=== PATIENT | female | born 1945 | race Hispanic/Latino ===

== ENCOUNTER 2017-06-08 16:45 | Inpatient (IN) | payer MEDICARE ==
[~2017-06-08] VITALS: Ht 152.4 cm; Wt 75.8 kg
[2017-06-08] MEDS ORDERED: ACETAMINOPHEN 325 MG TAB PO ONE (18:00)
--- NOTE | 2017-06-08 18:00 | Diagnostic Imaging Report ---
PROCEDURE: Frontal and lateral views of the chest. COMPARISON: None. INDICATIONS: FLU LIKE SYMPTOMS FINDINGS: Lines/tubes: None. Lungs: The lungs are well inflated. Mild bilateral pleural effusions these opacities. Pleura: There is no pleural effusion or pneumothorax. Heart and mediastinum: The heart and the mediastinum are normal. Bones: No acute bony abnormality. Degenerative changes of the spine. IMPRESSION: Mild bilateral lower lung field hazy opacities representing atelectasis and/or developing pneumonia. Dictated by: Ryan Doyle M.D. on 06/08/2017 at 18:09 Electronically approved by: Ryan Doyle M.D. on 06/08/2017 at 18:09
[2017-06-08 18:36] LABS: BASOPHILS # (AUTO) 0.1 (0.0-0.1); BASOPHILS % 0.4 % (0.0-1.0); HEMATOCRIT 37.9 % (34.2-44.1); HEMOGLOBIN 12.6 g/dL (12.0-16.0); LYMPHOCYTES % 13.1 % (18.0-39.1); MEAN CORPUSCULAR HEMOGLOBIN 28.8 pg (28-32); MEAN CORPUSCULAR HGB CONC 33.2 g/dL (31-35); MEAN CORPUSCULAR VOLUME 86.5 fL (81-99); MONOCYTES # (AUTO) 0.6 (0.2-0.8); MONOCYTES % 3.9 % (4.4-11.3); NEUTROPHILS # (AUTO) 12.7 (2.1-6.9); PLATELET COUNT 268 x10e3/uL (140-360); RED BLOOD COUNT 4.38 x10e6/uL (3.6-5.1); RED CELL DISTRIBUTION WIDTH 13.6 % (11.7-14.4)
[2017-06-08 18:50] LABS: ALANINE AMINOTRANSFERASE 23 IU/L (0-55); ALBUMIN 2.8 g/dL (3.5-5.0); ALBUMIN/GLOBULIN RATIO 0.5 (0.8-2.0); ALKALINE PHOSPHATASE 56 IU/L (40-150); BLOOD UREA NITROGEN 19 mg/dL (7-26); BUN/CREATININE RATIO 22 (6-25); CALCIUM 8.9 mg/dL (8.4-10.2); CARBON DIOXIDE 22 mmol/L (22-29); CHLORIDE 99 mmol/L (98-107); CREATINE KINASE 50 IU/L (29-168); CREATININE, SERUM 0.85 mg/dL (0.57-1.11); EST GLOMERULAR FILTRATION RATE > 60 ML/MIN (60-); GLUCOSE 115 mg/dL (74-118); SODIUM 134 mmol/L (136-145)
[2017-06-08] MEDS ORDERED: CEFTRIAXONE SOD 1 GM VIAL IV STA (20:28)
[2017-06-08] MEDS ORDERED: AZITHROMYCIN 500MG/NS 250 ML 250 ML IV STA (20:28)
[2017-06-08] MEDS ORDERED: SODIUM CHLORIDE 0.9% 1000ML 1,000 ML IV SCH (20:30)
[2017-06-08] MEDS: CEFTRIAXONE SOD 1 GM VIAL IV SCH (20:45)
[2017-06-08] MEDS ORDERED: DEXTROSE 50% SYRINGE 50 ML IV PRN (20:45)
[2017-06-08] MEDS ORDERED: AZITHROMYCIN 500MG/SOD CHL 0.9% 250ML BAG IV SCH (20:45)
[2017-06-08] MEDS ORDERED: ALBUTEROL SULF 0.083% NEB SOLN 3 ML NEB NEB SCH (20:45)
[2017-06-08] MEDS: INSULIN REGULAR, HUMAN 100 UNIT/1 ML 3ML VIAL SQ SCH (21:00)
[2017-06-08] MEDS: ALBUTEROL SULF 0.083% NEB SOLN 3 ML NEB NEB SCH (23:00)
[2017-06-08] MEDS: SODIUM CHLORIDE 0.9% 1000ML 1,000 ML IV SCH (23:34)
[2017-06-09] MEDS ORDERED: IPRATROPIUM BROMIDE 0.02% 2.5 ML NEB NEB SCH
[2017-06-09] MEDS: IPRATROPIUM BROMIDE 0.02% 2.5 ML NEB NEB SCH ×4 (01:00→19:45)
[2017-06-09 03:13] LABS: BASOPHILS % 0.3 % (0.0-1.0); EOSINOPHILS % 0.1 % (0.0-6.0); HEMATOCRIT 31.8 % (34.2-44.1); HEMOGLOBIN 10.5 g/dL (12.0-16.0); LYMPHOCYTES # (AUTO) 1.6 (1.0-3.2); LYMPHOCYTES % 11.3 % (18.0-39.1); MEAN CORPUSCULAR HEMOGLOBIN 28.8 pg (28-32); MEAN CORPUSCULAR VOLUME 87.1 fL (81-99); MONOCYTES # (AUTO) 0.5 (0.2-0.8); MONOCYTES % 3.5 % (4.4-11.3); NEUTROPHILS # (AUTO) 11.7 (2.1-6.9); NEUTROPHILS % 84.3 % (38.7-80.0); PLATELET COUNT 278 x10e3/uL (140-360); RED BLOOD COUNT 3.65 x10e6/uL (3.6-5.1); RED CELL DISTRIBUTION WIDTH 13.7 % (11.7-14.4)
[2017-06-09] MEDS: ALBUTEROL SULF 0.083% NEB SOLN 3 ML NEB NEB SCH ×5 (03:30→19:45)
[2017-06-09 03:51] LABS: CREATINE KINASE MB 0.5 ng/mL (0.00-5.00)
[2017-06-09 04:08] LABS: ALANINE AMINOTRANSFERASE 18 IU/L (0-55); ALBUMIN 2.3 g/dL (3.5-5.0); ALBUMIN/GLOBULIN RATIO 0.5 (0.8-2.0); ALKALINE PHOSPHATASE 48 IU/L (40-150); ANION GAP 12.7 mmol/L (8-16); BLOOD UREA NITROGEN 25 mg/dL (7-26); BUN/CREATININE RATIO 32 (6-25); CALCIUM 8.3 mg/dL (8.4-10.2); CARBON DIOXIDE 25 mmol/L (22-29); CHLORIDE 104 mmol/L (98-107); CREATININE, SERUM 0.79 mg/dL (0.57-1.11); EST GLOMERULAR FILTRATION RATE > 60 ML/MIN (60-); GLUCOSE 87 mg/dL (74-118); POTASSIUM 3.7 mmol/L (3.5-5.1); SODIUM 138 mmol/L (136-145)
[2017-06-09] MEDS: SODIUM CHLORIDE 0.9% 1000ML 1,000 ML IV SCH ×3 (05:42→21:10)
[2017-06-09] MEDS: INSULIN REGULAR, HUMAN 100 UNIT/1 ML 3ML VIAL SQ SCH ×4 (08:08→21:00)
[2017-06-09 12:14] LABS: CREATINE KINASE MB 0.4 ng/mL (0.00-5.00)
[2017-06-09 16:00] VITALS: BP 130/70
[2017-06-09 17:54] VITALS: BP 130/70
[2017-06-09 20:00] VITALS: BP 118/58
[2017-06-09] MEDS: AZITHROMYCIN 500MG/NS 250 ML 250 ML IV SCH (21:10)
[2017-06-09] MEDS: CEFTRIAXONE SOD 1 GM VIAL IV SCH (21:10)
[2017-06-10] VITALS (8 sets, daily range): BP systolic 119–160; BP diastolic 70–82
[2017-06-10] MEDS: ALBUTEROL SULF 0.083% NEB SOLN 3 ML NEB NEB SCH ×7 (00:30→23:55)
[2017-06-10] MEDS: IPRATROPIUM BROMIDE 0.02% 2.5 ML NEB NEB SCH ×4 (00:30→19:09)
[2017-06-10] MEDS: SODIUM CHLORIDE 0.9% 1000ML 1,000 ML IV SCH ×3 (04:16→19:33)
[2017-06-10] MEDS: INSULIN REGULAR, HUMAN 100 UNIT/1 ML 3ML VIAL SQ SCH ×4 (07:30→20:54)
[2017-06-10] MEDS: GUAIFENESIN/CODEINE 10 ML CUP PO PRN ×3 (10:13→21:00)
[2017-06-10] MEDS: AZITHROMYCIN 500MG/NS 250 ML 250 ML IV SCH (19:32)
[2017-06-10] MEDS: CEFTRIAXONE SOD 1 GM VIAL IV SCH (21:05)
[2017-06-11] VITALS (8 sets, daily range): BP systolic 134–168; BP diastolic 74–85
[2017-06-11] MEDS ORDERED: CLONIDINE HCL 0.1 MG TAB PO PRN (01:00)
[2017-06-11] MEDS: ALBUTEROL SULF 0.083% NEB SOLN 3 ML NEB NEB SCH ×5 (03:10→19:40)
[2017-06-11] MEDS: IPRATROPIUM BROMIDE 0.02% 2.5 ML NEB NEB SCH ×4 (03:10→19:40)
[2017-06-11 06:08] LABS: BASOPHILS % 0.4 % (0.0-1.0); EOSINOPHILS % 0.7 % (0.0-6.0); HEMATOCRIT 27.2 % (34.2-44.1); LYMPHOCYTES # (AUTO) 0.8 (1.0-3.2); LYMPHOCYTES % 15.5 % (18.0-39.1); MEAN CORPUSCULAR HEMOGLOBIN 28.8 pg (28-32); MEAN CORPUSCULAR HGB CONC 33.1 g/dL (31-35); MEAN CORPUSCULAR VOLUME 87.2 fL (81-99); MONOCYTES # (AUTO) 0.2 (0.2-0.8); MONOCYTES % 3.9 % (4.4-11.3); NEUTROPHILS # (AUTO) 4.3 (2.1-6.9); NEUTROPHILS % 78.9 % (38.7-80.0); PLATELET COUNT 309 x10e3/uL (140-360); RED BLOOD COUNT 3.12 x10e6/uL (3.6-5.1); RED CELL DISTRIBUTION WIDTH 13.5 % (11.7-14.4)
[2017-06-11 06:28] LABS: ANION GAP 10.4 mmol/L (8-16); BLOOD UREA NITROGEN 6 mg/dL (7-26); BUN/CREATININE RATIO 11 (6-25); CALCIUM 7.8 mg/dL (8.4-10.2); CARBON DIOXIDE 25 mmol/L (22-29); CHLORIDE 106 mmol/L (98-107); CREATININE, SERUM 0.54 mg/dL (0.57-1.11); EST GLOMERULAR FILTRATION RATE > 60 ML/MIN (60-); GLUCOSE 89 mg/dL (74-118); POTASSIUM 3.4 mmol/L (3.5-5.1); SODIUM 138 mmol/L (136-145)
--- NOTE | 2017-06-11 07:04 | Diagnostic Imaging Report ---
EXAMINATION: CHEST 2 VIEWS INDICATION: Pneumonia. COMPARISON: None FINDINGS: TUBES and LINES: None. LUNGS: Lungs are not well inflated. There are bibasilar atelectasis. There is perihilar interstitial opacities, consistent with interstitial edema. PLEURA: Small bilateral pleural effusions. HEART AND MEDIASTINUM: Cardiac size is mildly enlarged. There are atherosclerotic calcifications within the aorta. BONES AND SOFT TISSUES: No acute osseous lesion. Soft tissues are unremarkable. UPPER ABDOMEN: No free air under the diaphragm. IMPRESSION: Findings are compatible with fluid overload/pulmonary edema with small bilateral pleural effusions Signed by: Dr. Sedrick Garcia M.D. on 06/11/2017 7:01 AM
[2017-06-11] MEDS: INSULIN REGULAR, HUMAN 100 UNIT/1 ML 3ML VIAL SQ SCH ×4 (07:30→20:34)
[2017-06-11] MEDS ORDERED: FUROSEMIDE INJ 10 MG/ML 4 ML VIAL IV ONE (08:15)
[2017-06-11] MEDS ORDERED: LACTULOSE SYRUP 20 GM/30 ML UDC PO PRN (09:00)
[2017-06-11] MEDS: GUAIFENESIN/CODEINE 10 ML CUP PO PRN (17:54)
[2017-06-11] MEDS: AZITHROMYCIN 500MG/NS 250 ML 250 ML IV SCH ×2 (19:25→20:34)
[2017-06-11] MEDS: CEFTRIAXONE SOD 1 GM VIAL IV SCH (20:34)
[2017-06-12] MEDS: ALBUTEROL SULF 0.083% NEB SOLN 3 ML NEB NEB SCH ×6 (00:05→19:52)
[2017-06-12] MEDS: IPRATROPIUM BROMIDE 0.02% 2.5 ML NEB NEB SCH ×4 (00:05→19:52)
[2017-06-12 04:50] VITALS: BP 155/84
[2017-06-12] MEDS: INSULIN REGULAR, HUMAN 100 UNIT/1 ML 3ML VIAL SQ SCH ×4 (07:30→20:34)
[2017-06-12 08:00] VITALS: BP 154/72
--- NOTE | 2017-06-12 09:49 | Diagnostic Imaging Report ---
PROCEDURE: CT ABDOMEN AND PELVIS WITH CONTRAST TECHNIQUE: The abdomen and pelvis were scanned utilizing a multidetector helical scanner from the diaphragm to the lesser trochanter after the IV administration of 100 cc of Isovue 370 and the oral administration of water. Coronal and sagittal multiplanar reformations were obtained. COMPARISON: None. INDICATIONS: ABDOMEN PAIN FINDINGS: LOWER THORAX: The bibasilar subsegmental atelectasis, left greater than right. No pleural or pericardial effusion.. HEPATOBILIARY: No focal hepatic lesions. No biliary ductal dilatation. The gallbladder is unremarkable. SPLEEN: No splenomegaly. PANCREAS: No focal masses or ductal dilatation. ADRENALS: No adrenal nodules. KIDNEYS/URETERS: Subcentimeter hypoattenuating lesion in the lower pole of the left kidney, too small to further characterize though likely to represent a small cyst. No hydronephrosis, calculi, or additional renal lesions. Duplicated left renal collecting system with separate upper and lower pole moiety ureters to the level of the pelvis. PELVIC ORGANS/BLADDER: The urinary bladder is collapsed and poorly evaluated. The uterus is anteflexed and appears normal. No adnexal mass. PERITONEUM / RETROPERITONEUM: No ascites. No pneumoperitoneum. LYMPH NODES: No pelvic sidewall, retroperitoneal, or mesenteric lymphadenopathy. VESSELS: The abdominal aorta, major branch vessels, and iliac arterial systems are patent with mild calcified atherosclerotic plaque. No aneurysmal dilatation. Accessory left lower pole renal artery. hepatic arterial anatomy appears conventional. Portal vein, splenic vein, and central superior mesenteric vein are patent. Incidental note of a circumaortic left renal vein. GI TRACT: The large bowel is notable for multiple diverticula along the descending and sigmoid colon, without wall thickening or adjacent inflammation. The appendix is normal. No small bowel dilatation to suggest obstruction. BONES AND SOFT TISSUES: No focal soft tissue abnormalities. No osseous destructive lesions. Multilevel degenerative disc changes and degenerative facet arthropathy of the lumbar spine. IMPRESSION: No acute intra-abdominal or pelvic CT abnormalities. Bibasilar subsegmental atelectasis. Large bowel diverticulosis without CT evidence of diverticulitis. Atherosclerotic vascular disease. Dictated by: Yash Roberto M.D. on 06/12/2017 at 9:57 Electronically approved by: Yash Roberto M.D. on 06/12/2017 at 9:57
[2017-06-12 12:00] VITALS: BP 141/83
[2017-06-12 16:00] VITALS: BP 131/72
[2017-06-12] MEDS ORDERED: DICYCLOMINE HCL 20 MG TAB PO PRN (18:30)
[2017-06-12 20:29] VITALS: BP 161/76
[2017-06-12] MEDS: AZITHROMYCIN 500MG/NS 250 ML 250 ML IV SCH (20:38)
[2017-06-12] MEDS: CEFTRIAXONE SOD 1 GM VIAL IV SCH (20:38)
[2017-06-12] MEDS ORDERED: IOPAMIDOL 370 MG/ML 200 ML INFUS..BTL INJ ONE (22:12)
[2017-06-12] MEDS ORDERED: SODIUM CHLORIDE 0.9% 50ML 50 ML ONE (22:12)
[2017-06-12 23:40] VITALS: BP 142/66
[2017-06-13] MEDS: ALBUTEROL SULF 0.083% NEB SOLN 3 ML NEB NEB SCH ×3 (00:10→07:00)
[2017-06-13] MEDS: IPRATROPIUM BROMIDE 0.02% 2.5 ML NEB NEB SCH ×2 (00:10→07:00)
[2017-06-13 04:00] VITALS: BP 109/52
[2017-06-13] MEDS ORDERED: LEVAQUIN500 MG PO (07:35)
[2017-06-13] MEDS ORDERED: BENTYL10 MG PO (07:37)
[2017-06-13] MEDS ORDERED: PROAIR HFA INH8.5 GM INH (07:37)
[2017-06-13 08:00] VITALS: BP 126/75
--- NOTE | 2017-08-06 16:24 | Discharge Summary ---
HOSPITAL COURSE: The patient came into the hospital for pneumonia. Patient was started on albuterol and Atrovent treatment, ipratropium, azotomycin, and ceftriaxone. Patient was also started on insulin sliding scale for her diabetes. Patient did better. Fluids were started. Patient had complained of some constipation and lactulose was started. Patient's abdominal pain was out of proportion. We did a CT scan, which did not show any diverticulosis and any abscesses or acute pathology. The patient continued to look better . Continued insulin given. The patient was feeling better and the patient was discharged home. FINAL DIAGNOSES 1. Pneumonia. 2. Constipation. 3. History of osteoarthritis. DISCHARGE CONDITION: The patient was discharged to home in a stable condition. MEDICATIONS ON DISCHARGE: As per medical reconciliation sheet. Continue to monitor the patient as an outpatient. DEE YEBOAH MD Job#: [id number] VAS
== END 2017-06-13 09:15 | disposition home or self-care (01) | DRG 195 ==
LOC: ER 16:45 → ERHOLD 20:50 → EDBEDREQTM 06-09 04:52 → ERHOLD 06-09 07:34 → MED/SURG2 06-09 15:25
PROVIDERS: ADMIT Family Medicine; ATTEND Family Medicine
DX: J18.9 Pneumonia, unspecified organism (principal); I10 Essential (primary) hypertension; D64.9 Anemia, unspecified; E11.9 Type 2 diabetes mellitus without complications; R09.02 Hypoxemia; Z79.4 Long term (current) use of insulin
CPT/HCPCS: 36415; 71046; 74177; 80048; 80053; 82550; 82553; 82948; 83605; 84484; 85025; 87040; 87400; 94640; 99284; J0456; J0696; J1940; J7030; Q9967

== ENCOUNTER 2017-12-01 17:53 | Emergency (ER) | payer MEDICARE ==
[~2017-12-01] VITALS: Ht 157.5 cm; Wt 75.7 kg
[~2017-12-01 17:53] MED LIST: BENTYL10 MG PO; LEVAQUIN500 MG PO; PROAIR HFA INH8.5 GM INH
[2017-12-01] MEDS ORDERED: NIFEDIPINE 10 MG CAP PO ONE (18:49)
[2017-12-01] MEDS ORDERED: NIFEDIPINE 10 MG CAP PO STA (18:49)
[2017-12-01 21:12] LABS: BASOPHILS % 0.2 % (0.0-1.0); HEMATOCRIT 34.4 % (34.2-44.1); HEMOGLOBIN 11.5 g/dL (12.0-16.0); LYMPHOCYTES # (AUTO) 0.8 (1.0-3.2); MEAN CORPUSCULAR HEMOGLOBIN 28.6 pg (28-32); MEAN CORPUSCULAR HGB CONC 33.4 g/dL (31-35); MEAN CORPUSCULAR VOLUME 85.6 fL (81-99); MONOCYTES # (AUTO) 0.3 (0.2-0.8); MONOCYTES % 3.1 % (4.4-11.3); NEUTROPHILS # (AUTO) 7.8 (2.1-6.9); NEUTROPHILS % 85.5 % (38.7-80.0); PLATELET COUNT 320 x10e3/uL (140-360); RED BLOOD COUNT 4.02 x10e6/uL (3.6-5.1); RED CELL DISTRIBUTION WIDTH 14.7 % (11.7-14.4)
[2017-12-01 21:25] LABS: ALANINE AMINOTRANSFERASE 23 IU/L (0-55); ALBUMIN 3.2 g/dL (3.5-5.0); ALKALINE PHOSPHATASE 76 IU/L (40-150); ANION GAP 10.1 mmol/L (8-16); BLOOD UREA NITROGEN 18 mg/dL (7-26); BUN/CREATININE RATIO 27 (6-25); CALCIUM 8.6 mg/dL (8.4-10.2); CARBON DIOXIDE 29 mmol/L (22-29); CHLORIDE 102 mmol/L (98-107); CREATININE, SERUM 0.66 mg/dL (0.57-1.11); EST GLOMERULAR FILTRATION RATE > 60 ML/MIN (60-); GLUCOSE 294 mg/dL (74-118); POTASSIUM 4.1 mmol/L (3.5-5.1); SODIUM 137 mmol/L (136-145)
[2017-12-01 22:03] LABS: LYMPHOCYTES % (MANUAL) 5 % (19-48); NEUTROPHILS % (MANUAL) 95 % (40-74); PLATELET ESTIMATE ADEQUATE; PLATELET MORPHOLOGY COMMENT NORMAL; RBC MORPHOLOGY COMMENT NORMAL
[2017-12-01] MEDS ORDERED: AUGMENTIN 875-1 EACH PO (22:50)
[2017-12-01] MEDS ORDERED: CLEOCIN HCL150 MG PO (22:50)
[2017-12-01] MEDS ORDERED: TYLENOL WITH C1 EACH PO (22:50)
[2017-12-01 23:00] VITALS: BP 127/77
== END 2017-12-01 23:05 | disposition home or self-care (01) ==
LOC: ER 17:53
DX: L03.317 Cellulitis of buttock (principal); I10 Essential (primary) hypertension; E11.9 Type 2 diabetes mellitus without complications
CPT/HCPCS: 36415; 80053; 85025; 99283

== ENCOUNTER 2018-11-16 20:57 | Emergency (ER) | payer MEDICARE ==
[~2018-11-16] VITALS: Ht 157.5 cm; Wt 75.7 kg
[~2018-11-16 20:57] MED LIST changes: +AUGMENTIN 875-1 EACH PO; +CLEOCIN HCL150 MG PO; +TYLENOL WITH C1 EACH PO
[2018-11-16] MEDS ORDERED: SODIUM CHLORIDE 0.9% 1000ML 1,000 ML IV ONE (21:45)
[2018-11-16] MEDS ORDERED: ONDANSETRON HCL INJ 2MG/ML 2ML 2 MG/ML VIAL IV STA ×2 (21:53→21:54)
[2018-11-16] MEDS ORDERED: ACETAMINOPHEN 1000 MG/100 ML IV STA ×2 (21:53→21:54)
[2018-11-16 22:16] LABS: BASOPHILS % 0.6 % (0.0-1.0); EOSINOPHILS % 1.1 % (0.0-6.0); HEMOGLOBIN 12.9 g/dL (12.0-16.0); LYMPHOCYTES # (AUTO) 0.7 (1.0-3.2); LYMPHOCYTES % 18.4 % (18.0-39.1); MEAN CORPUSCULAR HEMOGLOBIN 29.2 pg (28-32); MEAN CORPUSCULAR HGB CONC 33.1 g/dL (31-35); MEAN CORPUSCULAR VOLUME 88.2 fL (81-99); MONOCYTES # (AUTO) 0.2 (0.2-0.8); MONOCYTES % 4.2 % (4.4-11.3); NEUTROPHILS # (AUTO) 2.7 (2.1-6.9); NEUTROPHILS % 74.6 % (38.7-80.0); PLATELET COUNT 243 x10e3/uL (140-360); RED BLOOD COUNT 4.42 x10e6/uL (3.6-5.1); RED CELL DISTRIBUTION WIDTH 13.7 % (11.7-14.4)
[2018-11-16 22:18] LABS: BILIRUBIN,URINE SMALL (NEGATIVE); COLOR,URINE YELLOW (YELLOW); KETONES,URINE NEGATIVE (NEGATIVE); LEUKOCYTE ESTERASE ,URINE TRACE (NEGATIVE); NITRITE,URINE POSITIVE (NEGATIVE); PROTEIN,URINE DIPSTICK TRACE (NEGATIVE); URINE UROBILINOGEN 0.2 mg/dL (0.2 - 1)
[2018-11-16 22:33] LABS: ALANINE AMINOTRANSFERASE 16 IU/L (0-55); ALBUMIN 3.1 g/dL (3.5-5.0); ALBUMIN/GLOBULIN RATIO 0.8 (0.8-2.0); ALKALINE PHOSPHATASE 42 IU/L (40-150); AMYLASE 24 U/L (25-125); ANION GAP 16.7 mmol/L (8-16); BLOOD UREA NITROGEN 13 mg/dL (7-26); BUN/CREATININE RATIO 16 (6-25); CALCIUM 8.7 mg/dL (8.4-10.2); CARBON DIOXIDE 26 mmol/L (22-29); CHLORIDE 99 mmol/L (98-107); CREATININE, SERUM 0.83 mg/dL (0.57-1.11); EST GLOMERULAR FILTRATION RATE > 60 ML/MIN (60-); GLUCOSE 99 mg/dL (74-118); LIPASE 24 U/L (8-78); POTASSIUM 3.7 mmol/L (3.5-5.1); SODIUM 138 mmol/L (136-145)
[2018-11-16 22:36] LABS: CLARITY,URINE CLOUDY (CLEAR)
[2018-11-16 22:38] LABS: BACTERIA,URINE MANY /HPF; EPITHELIAL CELLS,URINE FEW /LPF; WBC,URINE (MAN) 21-50 /HPF (0-5)
--- NOTE | 2018-11-16 23:12 | Diagnostic Imaging Report ---
EXAMINATION: Right upper quadrant ultrasound CLINICAL INDICATION: Right upper quadrant pain COMPARISON: None DISCUSSION: Transverse and longitudinal images of the right upper quadrant were obtained. The liver is normal in size measuring 13.2centimeters in length in the right midclavicular line and shows increased echogenicity. No focal masses are seen in the liver. There is no intrahepatic biliary dilatation. The common bile duct is normal in caliber and measures 0.6 cm. The main portal vein is normal in caliber and measures 0.7 cm with normal hepatopetal flow. The gallbladder is normal in appearance without stones, wall thickening or pericholecystic fluid. The sonographic Wallace's sign is negative. The visualized portions of the pancreatic body are unremarkable. The right kidney measures 8.7 centimeters in length. There is normal renal cortical echogenicity and no hydronephrosis, mass or shadowing calculi. The visualized portions of the great vessels are normal. No free fluid is seen. IMPRESSION: Normal gallbladder. Increased hepatic echogenicity can be seen in steatosis or other chronic inflammatory condition. Signed by: Dr. Kyle Melendez M.D. on 11/16/2018 11:09 PM
[2018-11-16] MEDS ORDERED: SODIUM CHLORIDE 0.9% 50ML 50 ML ONE (23:37)
[2018-11-16] MEDS ORDERED: IOPAMIDOL 370 MG/ML 200 ML INFUS..BTL INJ ONE (23:37)
--- NOTE | 2018-11-17 00:13 | Diagnostic Imaging Report ---
Examination: Single AP view of the chest. COMPARISON: None. INDICATION: pain DISCUSSION: Lines/tubes: None. Lungs: Left lower lung atelectasis. No pneumonia or pulmonary edema. Pleura: No pleural effusion or pneumothorax. Heart and mediastinum: The heart and the mediastinum are unremarkable. Bones and soft tissues: No acute bony abnormalities. IMPRESSION: 1. No acute cardiopulmonary abnormalities. Signed by: Dr. Kyle Melendez M.D. on 11/17/2018 12:10 AM
--- NOTE | 2018-11-17 00:24 | Diagnostic Imaging Report ---
EXAMINATION: CT of the abdomen and pelvis with contrast. TECHNIQUE: Helical CT images of the abdomen and pelvis were performed from the lung bases to the lesser trochanters after the intravenous administration of 100 cc of Omnipaque 300 and the oral administration of none. Coronal and sagittal reformatted images were obtained.Dose modulation, iterative reconstruction, and/or weight based adjustment of the mA/kV was utilized to reduce the radiation dose to as low as reasonably achievable. COMPARISON: None. CLINICAL HISTORY:pain DISCUSSION: ABDOMEN/PELVIS: LOWER THORAX:Unremarkable. HEPATOBILIARY: No focal hepatic lesions. No intra-or extrahepatic biliary ductal dilation. The gallbladder is normal. SPLEEN: No splenomegaly. PANCREAS: No focal masses or ductal dilatation. ADRENALS: No adrenal nodules. KIDNEYS/URETERS: No hydronephrosis, stones, or solid mass lesions. PELVIC ORGANS/BLADDER: The bladder is normal. PERITONEUM/RETROPERITONEUM: No free air or fluid. LYMPH NODES: No intra-abdominal, retroperitoneal, pelvic or inguinal lymphadenopathy. VESSELS: The celiac trunk,superior and inferior mesenteric and bilateral renal arteries are patent The portal, superior mesenteric and splenic veins are patent. GI TRACT: No distention or wall thickening. The appendix is normal. Diverticulosis. BONES AND SOFT TISSUE: No bony destructive lesions. No soft tissue abnormalities. IMPRESSION: No acute CT finding. Signed by: Dr. Kyle Melendez M.D. on 11/17/2018 12:21 AM
[2018-11-17] MEDS ORDERED: CEFTRIAXONE SOD 1 GM/NS 50 ML 50 ML IV ONE (01:00)
[2018-11-17 01:13] VITALS: BP 96/55
[2018-12-03] MEDS ORDERED: PROTONIX40 MG PO (09:25)
[2018-12-03] MEDS ORDERED: LEVAQUIN500 MG PO (09:25)
[2018-12-03] MEDS ORDERED: CARAFATE1 GM PO (09:25)
[2018-12-03] MEDS ORDERED: FLAGYL500 MG PO (09:25)
== END 2018-11-17 01:22 | disposition home or self-care (01) ==
LOC: ER 20:57
DX: K29.00 Acute gastritis without bleeding (principal); N30.91 Cystitis, unspecified with hematuria; I10 Essential (primary) hypertension; E11.9 Type 2 diabetes mellitus without complications; M19.90 Unspecified osteoarthritis, unspecified site
CPT/HCPCS: 36415; 71045; 74177; 76705; 80053; 81001; 82150; 83605; 83690; 85025; 87040; 87086; 87186; 96365; 96374; 99284; J0131; J0696; J2405; J7030; Q9967

== ENCOUNTER 2018-11-28 12:13 | Inpatient (IN) | payer MEDICARE ==
[~2018-11-28] VITALS: Ht 157.5 cm; Wt 75.7 kg
[2018-11-28] MEDS ORDERED: SODIUM CHLORIDE 0.9% 1000ML 1,000 ML IV STA (12:34)
[2018-11-28 13:47] LABS: BASOPHILS % 0.8 % (0.0-1.0); EOSINOPHILS % 0.3 % (0.0-6.0); HEMOGLOBIN 13.4 g/dL (12.0-16.0); LYMPHOCYTES # (AUTO) 0.7 (1.0-3.2); LYMPHOCYTES % 20.6 % (18.0-39.1); MEAN CORPUSCULAR HEMOGLOBIN 28.5 pg (28-32); MEAN CORPUSCULAR HGB CONC 32.7 g/dL (31-35); MEAN CORPUSCULAR VOLUME 87.2 fL (81-99); MONOCYTES # (AUTO) 0.2 (0.2-0.8); NEUTROPHILS # (AUTO) 2.6 (2.1-6.9); NEUTROPHILS % 72.5 % (38.7-80.0); PLATELET COUNT 210 x10e3/uL (140-360)
[2018-11-28 13:55] LABS: BILIRUBIN,URINE MODERATE (NEGATIVE); CLARITY,URINE SL CLOUDY (CLEAR); COLOR,URINE YELLOW (YELLOW); KETONES,URINE 1+ (NEGATIVE); LEUKOCYTE ESTERASE ,URINE NEGATIVE (NEGATIVE); NITRITE,URINE NEGATIVE (NEGATIVE); PROTEIN,URINE DIPSTICK 2+ (NEGATIVE); URINE UROBILINOGEN 2 mg/dL (0.2 - 1)
[2018-11-28 14:08] LABS: BACTERIA,URINE MODERATE /HPF; EPITHELIAL CELLS,URINE MODERATE /LPF; RBC,URINE 0-5 /HPF (0-5)
[2018-11-28 14:09] LABS: AMORPHOUS SEDIMENT,URINE FEW (FEW); HYALINE CASTS 0-1 (0-1); MUCUS,URINE FEW (RARE)
[2018-11-28 14:12] LABS: ALANINE AMINOTRANSFERASE 13 IU/L (0-55); ALBUMIN 3.1 g/dL (3.5-5.0); ALBUMIN/GLOBULIN RATIO 0.7 (0.8-2.0); ALKALINE PHOSPHATASE 44 IU/L (40-150); AMYLASE 33 U/L (25-125); ANION GAP 17.4 mmol/L (8-16); BLOOD UREA NITROGEN 10 mg/dL (7-26); BUN/CREATININE RATIO 14 (6-25); CALCIUM 8.9 mg/dL (8.4-10.2); CARBON DIOXIDE 25 mmol/L (22-29); CHLORIDE 101 mmol/L (98-107); CREATININE, SERUM 0.74 mg/dL (0.57-1.11); EST GLOMERULAR FILTRATION RATE > 60 ML/MIN (60-); GLUCOSE 117 mg/dL (74-118); MAGNESIUM 1.9 MG/DL (1.3-2.1); POTASSIUM 3.4 mmol/L (3.5-5.1); SODIUM 140 mmol/L (136-145)
[2018-11-28 14:19] LABS: LIPASE 55 U/L (8-78)
[2018-11-28] MEDS ORDERED: FAMOTIDINE 20 MG/2 ML VIAL IV ONE (15:00)
[2018-11-28] MEDS ORDERED: DONNATAL/LIDOCAINE/MAALOX 30 ML SUSP PO ONE (15:00)
--- NOTE | 2018-11-28 17:23 | Diagnostic Imaging Report ---
EXAM: CT Abdomen and Pelvis WITHOUT contrast INDICATION: ^abdominal pain ^[id number] ^1540 ^Y COMPARISON: CT abdomen and pelvis 11/16/2018 TECHNIQUE: Abdomen and pelvis were scanned utilizing a multidetector helical scanner from the lung base to the pubic symphysis without administration of IV contrast. Absence of intravenous contrast decreases sensitivity for detection of focal lesions and vascular pathology. Coronal and sagittal reformations were obtained. Routine protocol was performed. IV CONTRAST: None. ORAL CONTRAST: Gastrografin RADIATION DOSE: Total DLP: 548.9 mGy*cm Estimated effective dose: (DLP x 0.015 x size factor) mSv COMPLICATIONS: None FINDINGS: LINES and TUBES: None. LOWER THORAX: Worsening subsegmental atelectasis in the left lower lobe. Extensive coronary artery calcifications. HEPATOBILIARY: No focal hepatic lesions. No biliary ductal dilation. GALLBLADDER: No radio-opaque stones or sludge. There is unusual appearance of the cystic duct with the prior years diffusely dilated but unchanged compared to prior exam. No calcified stones in the cystic duct. No wall thickening. SPLEEN: No splenomegaly. PANCREAS: The pancreatic head is not well seen but there is surrounding mild fat stranding. The pancreatic body and tail appeared unremarkable. No pancreatic duct dilatation. ADRENALS: No adrenal nodules KIDNEYS/URETERS: No hydronephrosis. No cystic or solid mass lesions. 6 mm calcification in the interpolar region of the right kidney on coronal image 63 and two small calcifications in the left kidney on image 63 suggestive of nonobstructing stones. GI TRACT: Interval development of diffuse wall thickening with mild surrounding fat stranding of the first and second portion of the duodenum. There appears to be also wall thickening of the gastric antrum. No abnormal distention, wall thickening, or evidence of bowel obstruction. Diverticulosis of the sigmoid colon without diverticulitis. Appendix is normal. PELVIC ORGANS/BLADDER: Unremarkable. LYMPH NODES: No lymphadenopathy. VESSELS: Atherosclerotic calcifications of the abdominal aorta and pelvic arteries without aneurysm. PERITONEUM / RETROPERITONEUM: No free air or fluid. BONES: Unremarkable. SOFT TISSUES: Unremarkable. IMPRESSION: 1. Diffuse wall thickening of the first and second portion of the duodenum and distal stomach with surrounding mild fat stranding extending into the peripancreatic head are suggestive of severe gastroduodenitis. Recommend GI consultation. No surrounding free air or free fluid. 2. Nonobstructing bilateral nephrolithiasis. 3. Worsening subsegmental atelectasis in the left lower lobe. Signed by: Dr. Michelle Kulkarni M.D. on 11/28/2018 5:20 PM
[2018-11-28] MEDS ORDERED: LIDOCAINE HCL 2% LOCAL INJ 5 ML SDV VIAL INJ ONE (17:35)
[2018-11-28] MEDS ORDERED: PROPOFOL IV EMULSION 10 MG/ML 50 ML VIAL ONE (17:35)
--- NOTE | 2018-11-28 19:02 | NUR ---
Beside report walking round complete. Pt A&O and in no apparent distress. Pt family at bedside. All safety measures ensured and pt call bower near. Pt encouraged to use call bower for assistance.
[2018-11-28 19:30] VITALS: BP 141/71
--- NOTE | 2018-11-28 19:45 | NUR ---
Call placed to Dr. Workman for pt orders
[2018-11-28 20:00] VITALS: BP 141/71
--- NOTE | 2018-11-28 20:15 | NUR ---
Called placed again to Dr. Workman; orders given for pt Morphine 4mg IV q 4h, Phenergan IV 12.5 q 6h prn, and regular insulin sliding scale.
[2018-11-28] MEDS ORDERED: DEXTROSE 50% SYRINGE 50 ML IV PRN (20:30)
--- NOTE | 2018-11-28 20:35 | NUR ---
Pt has had no appetite; Pt refused food when offered. Informed pt she should try to eat.
[2018-11-28] MEDS: MORPHINE SULFATE INJ 4 MG/ML INJ 1ML IV PRN (20:53)
[2018-11-28] MEDS: INSULIN REGULAR, HUMAN 100 UNIT/1 ML 3ML VIAL SQ SCH (21:00)
[2018-11-28 21:30] LABS: BASOPHILS % 0.7 % (0.0-1.0); EOSINOPHILS % 0.3 % (0.0-6.0); HEMATOCRIT 36.1 % (34.2-44.1); HEMOGLOBIN 11.8 g/dL (12.0-16.0); LYMPHOCYTES # (AUTO) 0.6 (1.0-3.2); LYMPHOCYTES % 18.9 % (18.0-39.1); MEAN CORPUSCULAR HEMOGLOBIN 28.6 pg (28-32); MEAN CORPUSCULAR HGB CONC 32.7 g/dL (31-35); MEAN CORPUSCULAR VOLUME 87.6 fL (81-99); MONOCYTES # (AUTO) 0.2 (0.2-0.8); MONOCYTES % 5.5 % (4.4-11.3); NEUTROPHILS # (AUTO) 2.3 (2.1-6.9); NEUTROPHILS % 73.6 % (38.7-80.0); PLATELET COUNT 198 x10e3/uL (140-360); RED BLOOD COUNT 4.12 x10e6/uL (3.6-5.1)
[2018-11-29] VITALS (9 sets, daily range): BP systolic 99–171; BP diastolic 53–83
[2018-11-29 05:22] LABS: BASOPHILS % 0.6 % (0.0-1.0); EOSINOPHILS % 0.3 % (0.0-6.0); HEMATOCRIT 34.7 % (34.2-44.1); HEMOGLOBIN 11.4 g/dL (12.0-16.0); LYMPHOCYTES # (AUTO) 0.7 (1.0-3.2); LYMPHOCYTES % 20.2 % (18.0-39.1); MEAN CORPUSCULAR HEMOGLOBIN 28.8 pg (28-32); MEAN CORPUSCULAR HGB CONC 32.9 g/dL (31-35); MEAN CORPUSCULAR VOLUME 87.6 fL (81-99); MONOCYTES # (AUTO) 0.2 (0.2-0.8); MONOCYTES % 6.3 % (4.4-11.3); NEUTROPHILS # (AUTO) 2.4 (2.1-6.9); PLATELET COUNT 206 x10e3/uL (140-360); RED BLOOD COUNT 3.96 x10e6/uL (3.6-5.1); RED CELL DISTRIBUTION WIDTH 13.9 % (11.7-14.4)
[2018-11-29 05:40] LABS: ALANINE AMINOTRANSFERASE 10 IU/L (0-55); ALBUMIN 2.6 g/dL (3.5-5.0); ALBUMIN/GLOBULIN RATIO 0.7 (0.8-2.0); ALKALINE PHOSPHATASE 36 IU/L (40-150); ANION GAP 12.2 mmol/L (8-16); BLOOD UREA NITROGEN 6 mg/dL (7-26); BUN/CREATININE RATIO 10 (6-25); CALCIUM 8.1 mg/dL (8.4-10.2); CARBON DIOXIDE 26 mmol/L (22-29); CHLORIDE 100 mmol/L (98-107); CREATININE, SERUM 0.59 mg/dL (0.57-1.11); EST GLOMERULAR FILTRATION RATE > 60 ML/MIN (60-); POTASSIUM 3.2 mmol/L (3.5-5.1); SODIUM 135 mmol/L (136-145)
[2018-11-29 06:01] LABS: GLUCOSE 53 mg/dL (74-118)
--- NOTE | 2018-11-29 06:12 | NUR ---
Pt BS 53. Pt asymptomatic with no complaints. Pt A&O. Pt given orange juice and jani crackers. Will continue to monitor pt and recheck BS.
--- NOTE | 2018-11-29 07:18 | NUR ---
RECEIVED PATIENT AWAKE RESTING IN BED NO SIGNS OF DISTRESS. BED LOW, WHEELS LOCKED, SIDE RAILS X2. CALL LIGHT IN REACH WILL CONTINUE TO MONITOR PATIENT.
--- NOTE | 2018-11-29 07:18 | NUR ---
Bedside report walking rounds complete with day shift RN.
--- NOTE | 2018-11-29 07:25 | NUR ---
H&P cc: n/v/d FOR 2 weeks HPI: 73yoF, PCP , developed N/V/D for 2 weeks; went to PCP, given abx, but no better. Never had colonoscopy. PMH: ESBL E.coli infected wound, strep viridans infected wound, HTN, DM, RA, PSHx: I&D Allergies; see emr Fh/SH; marrried; no cigs/etoh/illicits meds; see MAR ROS: no f/c/s/MIDDLETON/cp/sob/rash/back pain/dizziness v/s; revd PE tired appearing anicteric ns1s2 mod bs soft; mild abd tenderness no e/t a&ox3; barnes skin dry n. affect labs/meds revd A/P: Gastroduodenitis Leukopenia Hypokalemia UTI Obesity BMI 30.5 DM2 PLAN IVF IV levaquin/flagyl GI consult Replace lytes Urine cx SCD/ppi Rey Workman MD, PhD.
[2018-11-29] MEDS: INSULIN REGULAR, HUMAN 100 UNIT/1 ML 3ML VIAL SQ SCH ×4 (07:30→20:54)
[2018-11-29 07:40] LABS: CHOL/HDL RATIO 8.4 (3.0-3.6)
[2018-11-29] MEDS ORDERED: POTASSIUM CHLORIDE 20MEQ/100ML 100 ML IV ONE (08:00)
[2018-11-29] MEDS ORDERED: SODIUM CHLORIDE 0.9% 50ML 0 ML ONE (08:04)
[2018-11-29] MEDS ORDERED: SODIUM CHLORIDE 0.9% 250ML 250 ML ONE ×2 (08:04→09:58)
[2018-11-29] MEDS: PANTOPRAZOLE 40 MG 10ML VIAL IV SCH ×2 (08:15→16:18)
[2018-11-29] MEDS: FAMOTIDINE 20 MG/2 ML VIAL IV SCH ×2 (08:15→16:17)
[2018-11-29] MEDS: LEVOFLOXACIN 500MG/D5W 100ML 100 ML IV SCH (08:15)
[2018-11-29 08:36] LABS: BAND NEUTROPHILS % (MANUAL) 5 %; LYMPHOCYTES % (MANUAL) 10 % (19-48); MONOCYTES % (MANUAL) 2 % (3.4-9.0); NEUTROPHILS % (MANUAL) 83 % (40-74)
[2018-11-29 08:37] LABS: PLATELET ESTIMATE ADEQUATE; PLATELET MORPHOLOGY COMMENT NORMAL; RBC MORPHOLOGY COMMENT NORMAL
--- NOTE | 2018-11-29 09:43 | NUR ---
PATIENT TRANSFERRED TO ROOM 187 VIA WHEELCHAIR. NO SIGNS OF DISTRESS. LEFT IN STABLE CONDITION.
--- NOTE | 2018-11-29 09:44 | NUR ---
RCD PT FROM MED SURG BY BED PT IS ALERT AND ORIENTED VITALS CHECKED PT RESTING ON BED FAMILY AT BED SIDE BED LOW AND LOCKED CALL LIGHT IN REACH
[2018-11-29 12:27] LABS: BASOPHILS % 0.8 % (0.0-1.0); EOSINOPHILS % 0.4 % (0.0-6.0); HEMATOCRIT 35.5 % (34.2-44.1); HEMOGLOBIN 11.3 g/dL (12.0-16.0); LYMPHOCYTES # (AUTO) 0.5 (1.0-3.2); MEAN CORPUSCULAR HGB CONC 31.8 g/dL (31-35); MEAN CORPUSCULAR VOLUME 87.9 fL (81-99); MONOCYTES # (AUTO) 0.1 (0.2-0.8); MONOCYTES % 5.8 % (4.4-11.3); NEUTROPHILS # (AUTO) 1.8 (2.1-6.9); NEUTROPHILS % 73.2 % (38.7-80.0); PLATELET COUNT 204 x10e3/uL (140-360); RED BLOOD COUNT 4.04 x10e6/uL (3.6-5.1)
[2018-11-29] MEDS: METRONIDAZOLE 500MG/NS 100ML 100 ML IV SCH ×2 (14:00→20:54)
[2018-11-29 18:08] LABS: BASOPHILS % 0.7 % (0.0-1.0); EOSINOPHILS % 0.3 % (0.0-6.0); HEMATOCRIT 34.4 % (34.2-44.1); HEMOGLOBIN 11.3 g/dL (12.0-16.0); LYMPHOCYTES # (AUTO) 0.6 (1.0-3.2); LYMPHOCYTES % 20.5 % (18.0-39.1); MEAN CORPUSCULAR HGB CONC 32.8 g/dL (31-35); MEAN CORPUSCULAR VOLUME 88.4 fL (81-99); MONOCYTES # (AUTO) 0.2 (0.2-0.8); MONOCYTES % 5.9 % (4.4-11.3); NEUTROPHILS # (AUTO) 2.1 (2.1-6.9); NEUTROPHILS % 71.2 % (38.7-80.0); PLATELET COUNT 182 x10e3/uL (140-360); RED BLOOD COUNT 3.89 x10e6/uL (3.6-5.1)
--- NOTE | 2018-11-29 18:43 | NUR ---
PT RESTING ON BED BED SIDE REPORT GIVEN TO ONCOMING NURSE
[2018-11-29 19:33] LABS: HYPOCHROMASIA SLIGHT; LYMPHOCYTES % (MANUAL) 23 % (19-48); MONOCYTES % (MANUAL) 7 % (3.4-9.0); NEUTROPHILS % (MANUAL) 66 % (40-74); PLATELET MORPHOLOGY COMMENT FEW LARGE; RBC MORPHOLOGY COMMENT NORMAL
[2018-11-29 19:34] LABS: ANISOCYTOSIS SLIGHT; PLATELET ESTIMATE ADEQUATE
[2018-11-29] MEDS: SODIUM CHLORIDE 0.9% 1000ML 1,000 ML IV SCH (20:53)
[2018-11-29] MEDS: MORPHINE SULFATE INJ 4 MG/ML INJ 1ML IV PRN (20:54)
[2018-11-29] MEDS: PROMETHAZINE 12.5MG/ NACL 0.9% 12.5 MG/50 ML BAG IV PRN (20:54)
[2018-11-30] VITALS (7 sets, daily range): BP systolic 127–143; BP diastolic 68–86
[2018-11-30 05:27] LABS: BASOPHILS % 0.3 % (0.0-1.0); EOSINOPHILS % 0.3 % (0.0-6.0); HEMATOCRIT 34.1 % (34.2-44.1); LYMPHOCYTES # (AUTO) 0.8 (1.0-3.2); LYMPHOCYTES % 26.8 % (18.0-39.1); MEAN CORPUSCULAR HEMOGLOBIN 28.4 pg (28-32); MEAN CORPUSCULAR HGB CONC 32.3 g/dL (31-35); MEAN CORPUSCULAR VOLUME 87.9 fL (81-99); MONOCYTES # (AUTO) 0.2 (0.2-0.8); MONOCYTES % 5.6 % (4.4-11.3); NEUTROPHILS # (AUTO) 1.9 (2.1-6.9); PLATELET COUNT 180 x10e3/uL (140-360); RED BLOOD COUNT 3.88 x10e6/uL (3.6-5.1); RED CELL DISTRIBUTION WIDTH 14.1 % (11.7-14.4)
[2018-11-30] MEDS: METRONIDAZOLE 500MG/NS 100ML 100 ML IV SCH ×3 (05:46→22:00)
--- NOTE | 2018-11-30 06:33 | NUR ---
IM- progress note O/N no events ROS: no f/c/s/MIDDLETON/cp/sob/rash/back pain/dizziness v/s; revd PE tired appearing anicteric ns1s2 mod bs soft; mild abd tenderness no e/t a&ox3; barnes skin dry n. affect labs/meds revd A/P: Gastroduodenitis Leukopenia Hypokalemia UTI Obesity BMI 30.5 DM2 PLAN IVF IV levaquin/flagyl GI consult Replace lytes Urine cx SCD/ppi 11/30 check labs. Rey Workman MD, PhD.
--- NOTE | 2018-11-30 07:00 | NUR ---
PAGED DR DAVIS TO NOTIFY THE POTASSIUM LEVEL AND GLUCOSE AND LEFT THE MESSAGE
--- NOTE | 2018-11-30 07:00 | NUR ---
RCD PT AT BED PT IS ALERT AND ORIENTED PT RESTING ON BED IV PATENT PT NPO FOR PROCEDURE BED LOW AND LOCKED CALL LIGHT IN REACH
[2018-11-30 07:04] LABS: ANION GAP 11.1 mmol/L (8-16); CARBON DIOXIDE 27 mmol/L (22-29); CHLORIDE 97 mmol/L (98-107); CREATININE, SERUM 0.61 mg/dL (0.57-1.11); EST GLOMERULAR FILTRATION RATE > 60 ML/MIN (60-); POTASSIUM 3.1 mmol/L (3.5-5.1); SODIUM 132 mmol/L (136-145)
[2018-11-30 07:18] LABS: BLOOD UREA NITROGEN < 5 mg/dL (7-26)
[2018-11-30 07:19] LABS: BUN/CREATININE RATIO 8 (6-25)
[2018-11-30 07:20] LABS: GLUCOSE 49 mg/dL (74-118)
[2018-11-30] MEDS: LEVOFLOXACIN 500MG/D5W 100ML 100 ML IV SCH (07:30)
[2018-11-30] MEDS: INSULIN REGULAR, HUMAN 100 UNIT/1 ML 3ML VIAL SQ SCH ×4 (07:30→20:10)
[2018-11-30] MEDS: PANTOPRAZOLE 40 MG 10ML VIAL IV SCH ×2 (08:33→17:00)
[2018-11-30] MEDS: FAMOTIDINE 20 MG/2 ML VIAL IV SCH ×2 (08:33→17:00)
--- NOTE | 2018-11-30 09:00 | NUR ---
AGAIN PAGED DR DAVIS AND LEFT THE MESSAGE
--- NOTE | 2018-11-30 09:34 | NUR ---
DR DAVIS RETURNED CALL AND GOT NEW ORDERS
[2018-11-30] MEDS ORDERED: POTASSIUM CHLORIDE 20MEQ/100ML 100 ML IV ONE ×2 (09:45→10:00)
[2018-11-30] MEDS ORDERED: POTASSIUM CHLORIDE 10MEQ/100ML 100 ML IV ONE (10:30)
--- NOTE | 2018-11-30 11:00 | NUR ---
PAGED AND NOTIFIED OR NURSE HER POTASSIUM LEVEL 3.1
[2018-11-30 12:16] LABS: BASOPHILS % 0.4 % (0.0-1.0); EOSINOPHILS % 0.4 % (0.0-6.0); HEMATOCRIT 34.8 % (34.2-44.1); HEMOGLOBIN 11.5 g/dL (12.0-16.0); LYMPHOCYTES # (AUTO) 0.5 (1.0-3.2); LYMPHOCYTES % 18.2 % (18.0-39.1); MEAN CORPUSCULAR VOLUME 87.9 fL (81-99); MONOCYTES # (AUTO) 0.1 (0.2-0.8); MONOCYTES % 4.9 % (4.4-11.3); NEUTROPHILS % 75.7 % (38.7-80.0); PLATELET COUNT 185 x10e3/uL (140-360); RED BLOOD COUNT 3.96 x10e6/uL (3.6-5.1); RED CELL DISTRIBUTION WIDTH 14.2 % (11.7-14.4)
--- NOTE | 2018-11-30 15:24 | NUR ---
PT WENT TO PROCEDURE IN SAFE CONDITION
--- NOTE | 2018-11-30 17:00 | NUR ---
PT BACK AFTER PROCEDURE PT IS ALERT AND ORIENTED VITALS CHECKED PT RESTING ON BED FAMILY AT BED SIDE BED LOW AND LOCKED CALL LIGHT IN REACH
[2018-11-30 17:35] LABS: BASOPHILS % 0.5 % (0.0-1.0); EOSINOPHILS % 0.5 % (0.0-6.0); HEMOGLOBIN 11.7 g/dL (12.0-16.0); LYMPHOCYTES # (AUTO) 0.9 (1.0-3.2); LYMPHOCYTES % 22.2 % (18.0-39.1); MEAN CORPUSCULAR HGB CONC 32.5 g/dL (31-35); MEAN CORPUSCULAR VOLUME 89.3 fL (81-99); MONOCYTES # (AUTO) 0.2 (0.2-0.8); MONOCYTES % 5.5 % (4.4-11.3); NEUTROPHILS # (AUTO) 2.8 (2.1-6.9); NEUTROPHILS % 70.6 % (38.7-80.0); PLATELET COUNT 188 x10e3/uL (140-360); RED BLOOD COUNT 4.03 x10e6/uL (3.6-5.1); RED CELL DISTRIBUTION WIDTH 14.3 % (11.7-14.4)
--- NOTE | 2018-11-30 18:52 | NUR ---
PT RESTING ON BED BED SIDE REPORT GIVEN TO ONCOMING NURSE
[2018-11-30] MEDS: SODIUM CHLORIDE 0.9% 1000ML 1,000 ML IV SCH (20:37)
[2018-12-01] VITALS (7 sets, daily range): BP systolic 120–189; BP diastolic 69–86
[2018-12-01] MEDS: MORPHINE SULFATE INJ 4 MG/ML INJ 1ML IV PRN ×2 (00:29→17:22)
--- NOTE | 2018-12-01 00:56 | NUR ---
TEMP. RECHECKED 99.8 F.
--- NOTE | 2018-12-01 01:33 | NUR ---
Patient requested to remove compression stockings and scds because of leg pain.
[2018-12-01] MEDS ORDERED: ACETAMINOPHEN 325 MG TAB PO PRN (03:30)
[2018-12-01 05:19] LABS: BASOPHILS % 0.8 % (0.0-1.0); EOSINOPHILS % 0.4 % (0.0-6.0); HEMATOCRIT 32.4 % (34.2-44.1); HEMOGLOBIN 10.4 g/dL (12.0-16.0); LYMPHOCYTES # (AUTO) 0.6 (1.0-3.2); LYMPHOCYTES % 23.8 % (18.0-39.1); MEAN CORPUSCULAR HEMOGLOBIN 28.3 pg (28-32); MEAN CORPUSCULAR HGB CONC 32.1 g/dL (31-35); MONOCYTES # (AUTO) 0.2 (0.2-0.8); MONOCYTES % 6.1 % (4.4-11.3); NEUTROPHILS # (AUTO) 1.7 (2.1-6.9); NEUTROPHILS % 68.5 % (38.7-80.0); PLATELET COUNT 179 x10e3/uL (140-360); RED BLOOD COUNT 3.68 x10e6/uL (3.6-5.1); RED CELL DISTRIBUTION WIDTH 14.2 % (11.7-14.4)
[2018-12-01] MEDS: METRONIDAZOLE 500MG/NS 100ML 100 ML IV SCH ×3 (06:02→21:47)
--- NOTE | 2018-12-01 07:00 | NUR ---
Pt received resting in bed. Alert and oriented x4 mostly Wolof speaking. Oriented to staff and surroundings. Encouraged to press call bower if help needed. Pt verbalized understanding of teaching. Will monitor
[2018-12-01] MEDS: INSULIN REGULAR, HUMAN 100 UNIT/1 ML 3ML VIAL SQ SCH ×4 (07:30→20:11)
[2018-12-01] MEDS: FAMOTIDINE 20 MG/2 ML VIAL IV SCH ×2 (08:26→17:22)
[2018-12-01] MEDS: PANTOPRAZOLE 40 MG 10ML VIAL IV SCH ×2 (08:26→17:22)
[2018-12-01] MEDS: LEVOFLOXACIN 500MG/D5W 100ML 100 ML IV SCH (08:26)
--- NOTE | 2018-12-01 08:28 | NUR ---
All meds given as ordered. Pt encouraged to eat breakfast, fingerstick 60 pt is asymptomatic. Niece at bedside. Will monitor
--- NOTE | 2018-12-01 09:24 | NUR ---
EDUCATED ABOUT IMM, SIGNED, FILED IN CHART, WITH COPY LEFT WITH FAMILY AT BEDSIDE
[2018-12-01 12:20] LABS: BASOPHILS % 0.9 % (0.0-1.0); EOSINOPHILS % 0.3 % (0.0-6.0); HEMATOCRIT 35.5 % (34.2-44.1); HEMOGLOBIN 11.5 g/dL (12.0-16.0); LYMPHOCYTES # (AUTO) 0.8 (1.0-3.2); LYMPHOCYTES % 25.6 % (18.0-39.1); MEAN CORPUSCULAR HEMOGLOBIN 28.3 pg (28-32); MEAN CORPUSCULAR HGB CONC 32.4 g/dL (31-35); MEAN CORPUSCULAR VOLUME 87.4 fL (81-99); MONOCYTES # (AUTO) 0.2 (0.2-0.8); NEUTROPHILS # (AUTO) 2.2 (2.1-6.9); NEUTROPHILS % 67.9 % (38.7-80.0); PLATELET COUNT 185 x10e3/uL (140-360); RED BLOOD COUNT 4.06 x10e6/uL (3.6-5.1); RED CELL DISTRIBUTION WIDTH 14.2 % (11.7-14.4)
[2018-12-01 12:59] LABS: LYMPHOCYTES % (MANUAL) 14 % (19-48); MONOCYTES % (MANUAL) 7 % (3.4-9.0); NEUTROPHILS % (MANUAL) 74 % (40-74)
[2018-12-01 13:00] LABS: PLATELET ESTIMATE ADEQUATE; PLATELET MORPHOLOGY COMMENT NORMAL; RBC MORPHOLOGY COMMENT NORMAL
--- NOTE | 2018-12-01 13:31 | NUR ---
IM- progress note O/N no events ROS: no f/c/s/[place]/cp/sob/rash/back pain/dizziness v/s; revd PE tired appearing anicteric ns1s2 mod bs soft; mild abd tenderness no e/t a&ox3; barnes skin dry n. affect labs/meds revd A/P: Gastroduodenitis Leukopenia Hypokalemia UTI Obesity BMI 30.5 DM2 PLAN IVF IV levaquin/flagyl GI consult Replace lytes Urine cx SCD/ppi 11/30 check labs. 12/01 d/c planning; EGD showed esophagitis, duodenitis, gastritis. Rey Workman MD, PhD.
--- NOTE | 2018-12-01 19:26 | NUR ---
Handoff given to oncoming shift. Saline lock inserted into left forearm #20
[2018-12-01 20:03] LABS: BASOPHILS % 0.7 % (0.0-1.0); EOSINOPHILS % 0.4 % (0.0-6.0); HEMATOCRIT 33.9 % (34.2-44.1); HEMOGLOBIN 11.1 g/dL (12.0-16.0); LYMPHOCYTES # (AUTO) 0.5 (1.0-3.2); LYMPHOCYTES % 19.3 % (18.0-39.1); MEAN CORPUSCULAR HEMOGLOBIN 28.5 pg (28-32); MEAN CORPUSCULAR HGB CONC 32.7 g/dL (31-35); MEAN CORPUSCULAR VOLUME 87.1 fL (81-99); MONOCYTES # (AUTO) 0.2 (0.2-0.8); MONOCYTES % 5.6 % (4.4-11.3); NEUTROPHILS % 73.3 % (38.7-80.0); PLATELET COUNT 160 x10e3/uL (140-360); RED BLOOD COUNT 3.89 x10e6/uL (3.6-5.1); RED CELL DISTRIBUTION WIDTH 14.4 % (11.7-14.4)
[2018-12-01] MEDS: PROMETHAZINE 12.5MG/ NACL 0.9% 12.5 MG/50 ML BAG IV PRN (20:19)
--- NOTE | 2018-12-01 20:19 | NUR ---
patient was throwing up when she was trying to eat pudding, PRN Phenergan given, will continue to monitor.
[2018-12-02] VITALS (8 sets, daily range): BP systolic 117–151; BP diastolic 61–82
[2018-12-02] MEDS ORDERED: ONDANSETRON HCL INJ 2MG/ML 2ML 2 MG/ML VIAL IV PRN (03:00)
[2018-12-02] MEDS: SODIUM CHLORIDE 0.9% 1000ML 1,000 ML IV SCH (03:07)
[2018-12-02] MEDS: METOCLOPRAMIDE HCL 10 MG/2ML VIAL IV SCH ×3 (05:46→18:06)
[2018-12-02] MEDS: METRONIDAZOLE 500MG/NS 100ML 100 ML IV SCH ×3 (05:46→21:33)
--- NOTE | 2018-12-02 06:46 | NUR ---
IM- progress note O/N no events ROS: no f/c/s/[place]/cp/sob/rash/back pain/dizziness v/s; revd PE tired appearing anicteric ns1s2 mod bs soft; mild abd tenderness no e/t a&ox3; barnes skin dry n. affect labs/meds revd A/P: Gastroduodenitis Leukopenia Hypokalemia UTI Obesity BMI 30.5 DM2 PLAN IVF IV levaquin/flagyl GI consult Replace lytes Urine cx SCD/ppi 11/30 check labs. 12/01 d/c planning; EGD showed esophagitis, duodenitis, gastritis. 12/02 Pancytopenia- hematology eval; likely related to acute illness. Hba1c 7, LDL 44. Hypoglycemic episodes due to not eating; add D5. Rey Workman MD, PhD.
--- NOTE | 2018-12-02 07:10 | NUR ---
Pt received resting in bed. Vitals stable. Call bower within reach. Pt is NPO for HIDA scan. Will monitor
[2018-12-02 08:40] LABS: BASOPHILS % 0.5 % (0.0-1.0); HEMATOCRIT 35.1 % (34.2-44.1); HEMOGLOBIN 11.6 g/dL (12.0-16.0); LYMPHOCYTES # (AUTO) 0.6 (1.0-3.2); LYMPHOCYTES % 16.4 % (18.0-39.1); MEAN CORPUSCULAR HEMOGLOBIN 28.6 pg (28-32); MEAN CORPUSCULAR VOLUME 86.7 fL (81-99); MONOCYTES # (AUTO) 0.2 (0.2-0.8); MONOCYTES % 4.7 % (4.4-11.3); NEUTROPHILS % 77.9 % (38.7-80.0); PLATELET COUNT 183 x10e3/uL (140-360); RED BLOOD COUNT 4.05 x10e6/uL (3.6-5.1); RED CELL DISTRIBUTION WIDTH 14.3 % (11.7-14.4)
--- NOTE | 2018-12-02 08:45 | NUR ---
All meds given as ordered. Bed alarm on. Call bower within reach. Will monitor
[2018-12-02] MEDS: FAMOTIDINE 20 MG/2 ML VIAL IV SCH ×2 (08:46→17:47)
[2018-12-02] MEDS: DEXTROSE 5%/0.45% SOD CHL 1,000 ML IV SCH (08:46)
[2018-12-02] MEDS: PANTOPRAZOLE 40 MG 10ML VIAL IV SCH ×2 (08:46→17:47)
[2018-12-02] MEDS: LEVOFLOXACIN 500MG/D5W 100ML 100 ML IV SCH (08:46)
[2018-12-02] MEDS: SUCRALFATE 1 GM TAB PO SCH ×4 (08:46→21:33)
[2018-12-02 09:02] LABS: ANION GAP 12.2 mmol/L (8-16); BLOOD UREA NITROGEN < 5 mg/dL (7-26); CALCIUM 7.9 mg/dL (8.4-10.2); CARBON DIOXIDE 22 mmol/L (22-29); CHLORIDE 101 mmol/L (98-107); CREATININE, SERUM 0.56 mg/dL (0.57-1.11); EST GLOMERULAR FILTRATION RATE > 60 ML/MIN (60-); GLUCOSE 77 mg/dL (74-118); MAGNESIUM 1.5 MG/DL (1.3-2.1); POTASSIUM 3.2 mmol/L (3.5-5.1); SODIUM 132 mmol/L (136-145)
[2018-12-02 09:04] LABS: BUN/CREATININE RATIO 9 (6-25)
--- NOTE | 2018-12-02 10:25 | NUR ---
Pt left for HIDA scan
--- NOTE | 2018-12-02 12:45 | NUR ---
Pt returned from HIDA scan
--- NOTE | 2018-12-02 16:22 | Diagnostic Imaging Report ---
Hepatobiliary Scan with Gallbladder Ejection Fraction Clinical information: Gastroduodenitis Report: Following intravenous administration of 6.7 millicuries of Tc-99m mebrofenin, dynamic images of the abdomen in the anterior projection were obtained through 60 minutes. Sincalide (CCK analog) 1.5 micrograms was administered intravenously over 30 minutes with additional imaging for determination of gallbladder ejection fraction. Perfusion to the liver is normal. Extraction of tracer from the blood pool by the liver parenchyma is normal. Tracer is seen promptly within the biliary tract. The gallbladder begins to fill by 25 minutes post-injection of tracer and fills adequately. Tracer is seen in the small bowel during the sincalide infusion. The gallbladder ejection fraction with administration of sincalide is 60% (normal greater than 40%). Impression: 1. Filling of the gallbladder excludes the diagnosis of acute cystic duct obstruction/acute cholecystitis. 2. Normal gallbladder ejection fraction of 60% does not support the clinical diagnosis of chronic cholecystitis/gallbladder dyskinesia. Signed by: Dr. Fariha Belle M.D. on 12/02/2018 4:18 PM
--- NOTE | 2018-12-02 18:25 | NUR ---
Pt resting comfortably in bed. Showered, and linens changed. Pt had one episode of liquid stool during her shower. Unable to colloect. IV fluid ongoing as ordered. Pt still has poor oral intake. aware. Will endorse to oncoming shift
[2018-12-02] MEDS ORDERED: POTASSIUM CHLORIDE 20 MEQ TAB CR PO ONE (19:10)
[2018-12-02] MEDS: MORPHINE SULFATE INJ 4 MG/ML INJ 1ML IV PRN (21:33)
--- NOTE | 2018-12-02 22:54 | NUR ---
patient is transferred to med surg 2, reports given.
--- NOTE | 2018-12-02 22:55 | NUR ---
RECEIVED PATIENT FROM [facility] AT THIS TIME. PATIENT REPORTS NO PAIN OR NAUSEA. VITALS STABLE. LUNG SOUNDS CLEAR. BOWEL SOUNDS ACTIVE. L FA 20G IV RUNNING 40 ML/HR OF NS. O2 @2L VIA NC. BED LOCKED IN LOWEST POSITION, SIDE RAILS UPX2, CALL LIGHT IN REACH.
[2018-12-03] MEDS: METOCLOPRAMIDE HCL 10 MG/2ML VIAL IV SCH ×3 (01:03→12:03)
[2018-12-03 04:00] VITALS: BP 164/84
--- NOTE | 2018-12-03 04:50 | NUR ---
PATIENT RESTING IN BED. REPORTS NO PAIN OR NAUSEA AT THIS TIME. BED LOCKED IN LOWEST POSITION, SIDE RAILS UPX2, CALL LIGHT IN REACH.
[2018-12-03] MEDS: METRONIDAZOLE 500MG/NS 100ML 100 ML IV SCH ×2 (06:30→14:26)
--- NOTE | 2018-12-03 07:00 | NUR ---
RECEIVED BEDSIDE REPORT FROM NIGHT RN. PT DENIES NEEDS AT THIS TIME.
[2018-12-03 07:39] VITALS: BP 156/80
[2018-12-03 07:40] VITALS: BP 156/80
[2018-12-03 09:00] VITALS: BP 156/80
[2018-12-03] MEDS: LEVOFLOXACIN 500MG/D5W 100ML 100 ML IV SCH (09:01)
[2018-12-03] MEDS: SUCRALFATE 1 GM TAB PO SCH ×3 (09:01→16:16)
[2018-12-03] MEDS: DEXTROSE 5%/0.45% SOD CHL 1,000 ML IV SCH (09:01)
[2018-12-03] MEDS: FAMOTIDINE 20 MG/2 ML VIAL IV SCH (09:05)
[2018-12-03] MEDS: PANTOPRAZOLE 40 MG 10ML VIAL IV SCH (09:05)
--- NOTE | 2018-12-03 09:22 | NUR ---
D/C summary Principal Dx: Gastroduodenitis Leukopenia Hypokalemia UTI Obesity BMI 30.5 Secondary Dx: DM2 PLAN IVF IV levaquin/flagyl GI consult Replace lytes Urine cx SCD/ppi 11/30 check labs. 12/01 d/c planning; EGD showed esophagitis, duodenitis, gastritis. 12/02 Pancytopenia- hematology eval; likely related to acute illness. Hba1c 7, LDL 44. Hypoglycemic episodes due to not eating; add D5. 12/03 check K; HIDA normal GB function; d/c planning; d/c home f/u pcp 1 week and GI 2 weeks and Oncology 2 weeks stable d/c>35mins Rey Workman MD, PhD.
[2018-12-03] MEDS ORDERED: FLAGYL500 MG PO (09:25)
[2018-12-03] MEDS ORDERED: CARAFATE1 GM PO (09:25)
[2018-12-03] MEDS ORDERED: LEVAQUIN500 MG PO (09:25)
[2018-12-03] MEDS ORDERED: PROTONIX40 MG PO (09:25)
[2018-12-03 12:11] VITALS: BP 136/80
[2018-12-03] MEDS ORDERED: POTASSIUM CHLORIDE 20 MEQ TAB CR PO ONE (15:00)
--- NOTE | 2018-12-03 15:22 | NUR ---
CM SPOKE TO NABIL AT BEDSIDE REGARDING DISCHARGE PLANNING. PATIENT STATES SHE WALKS WELL AND REFUSES HOME HEALTH SERVICES. PATIENT GIVEN EXTENSIVE INFORMATION ON BENEFITS OF HOME HEALTH AND RISKS OF NOT HAVING IT AFTER DISCHARGE. PATIENT AGAIN REFUSED HOME HEALTH. PATIENT DISCHARGE DISPOSITION: PATIENT DISCHARGING HOME WITH NO NEEDS. PATIENT WITH FAMILY AT BEDSIDE AND HAS SUPPORT AT HOME IF NEEDING ANY ASSISTANCE.
[2018-12-03 16:00] VITALS: BP 154/74
--- NOTE | 2018-12-03 22:21 | Progress Note ---
DATE: 12/03/2018 Followup Note CHIEF COMPLAINT: The patient is feeling well. Counts improved. PHYSICAL EXAMINATION: VITAL SIGNS: Reviewed as per electronic medical record. HEAD: Atraumatic and normocephalic. NECK: Supple. CVS: S1, S2 audible. RESPIRATORY: Decreased bilateral air entry. ABDOMEN: Soft. Positive bowel sounds. EXTREMITIES: Negative cyanosis. LAB DATA: Reviewed as per electronic medical record. ASSESSMENT AND PLAN: 1. Ms. Muir is a 73-year-old female admitted due to abdominal pain. Underwent EGD revealing esophagitis, duodenitis and gastritis. Hematology-Oncology was consulted due to pancytopenia. 2. Count has been stable, likely due to bone marrow suppression. Recommended to follow up outpatient. MD OUSMANE Roth/DANILO /[id number]
--- NOTE | 2019-02-10 07:26 | Operative Report ---
DATE OF PROCEDURE: 11/30/2018 SURGEON: Rolando Ibarra MD PROCEDURE: EGD with biopsies. REFERRING PHYSICIAN: Rey Workman MD. INDICATIONS FOR EGD: Upper abdominal pain, nausea, and vomiting. MEDICATIONS: The patient was done under MAC please see anesthesiologist's note. PROCEDURE IN DETAIL: With the patient in left lateral decubitus position, a flexible fiberoptic Olympus gastroscope was introduced into the esophagus under direct visualization without any difficulty. There was some patchy erythema noted in distal esophagus. The scope was then advanced with ease into the stomach. Mucosa overlying the antrum and the body revealed some patchy erythema, [id number] edema, biopsies were obtained and sent to stain for H pylori. The pylorus was of normal contour and shape. It was intubated with ease and the scope was advanced all the way to the second portion of the duodenum. Mucosa overlying the second portion as well as the duodenal bulb revealed some mild inflammatory changes. The scope was then withdrawn back into the stomach and retroflexed, and mucosa overlying the fundus and cardia appeared to be within normal limits. The scope was then straightened out. The stomach was decompressed. The scope was subsequently withdrawn. The patient tolerated the procedure well. IMPRESSION: 1. Distal esophagitis. 2. Gastritis, biopsied, biopsies sent to stain for H pylori. 3. Duodenitis. PLAN: Follow up histology. Initiate full liquid diet. Continue current therapy. Rolando Ibarra MD [facility] [place]/[facility] /[id number] cc: Rey Workman MD
== END 2018-12-03 16:56 | disposition home or self-care (01) | DRG 392 ==
LOC: ER 12:13 → ERHOLD 18:09 → MED/SURG 18:35 → IMCU 11-29 09:42 → MED/SURG2 12-02 22:59
PROVIDERS: ADMIT Internal Medicine; ATTEND Internal Medicine
PROC: 0DB68ZX Excision of Stomach, Via Natural or Artificial Opening Endoscopic, Diagnostic (ICD-10-PCS; principal; 2018-11-30 16:04)
DX: K29.90 Gastroduodenitis, unspecified, without bleeding (principal); N39.0 Urinary tract infection, site not specified; D61.818 Other pancytopenia; E66.9 Obesity, unspecified; Z68.30 Body mass index [BMI] 30.0-30.9, adult; D72.819 Decreased white blood cell count, unspecified; I10 Essential (primary) hypertension; M06.9 Rheumatoid arthritis, unspecified; E87.6 Hypokalemia; K20.9 Esophagitis, unspecified; K29.80 Duodenitis without bleeding; K29.70 Gastritis, unspecified, without bleeding; E11.649 Type 2 diabetes mellitus with hypoglycemia without coma; Z83.3 Family history of diabetes mellitus; Z82.49 Family history of ischemic heart disease and other diseases of the circulatory system; D64.9 Anemia, unspecified
CPT/HCPCS: 36415; 43239; 74176; 78227; 80048; 80053; 80061; 81001; 82150; 82948; 83036; 83690; 83735; 84132; 85025; 87086; 88305; 88312; 96361; 99284; A9537; J1956; J2001; J2270; J2550; J2765; J3480; J7030; J7050; J7799

== ENCOUNTER 2018-12-06 11:38 | Emergency (ER) | payer MEDICARE ==
[~2018-12-06] VITALS: Ht 157.5 cm; Wt 75.7 kg
[~2018-12-06 11:38] MED LIST changes: +CARAFATE1 GM PO; +FLAGYL500 MG PO; +PROTONIX40 MG PO
[2018-12-06] MEDS ORDERED: ASPIRIN 81 MG CHEW TAB PO ONE (11:45)
[2018-12-06 12:29] LABS: BASOPHILS % 0.9 % (0.0-1.0); HEMATOCRIT 38.4 % (34.2-44.1); HEMOGLOBIN 12.4 g/dL (12.0-16.0); LYMPHOCYTES # (AUTO) 0.6 (1.0-3.2); LYMPHOCYTES % 17.9 % (18.0-39.1); MEAN CORPUSCULAR HEMOGLOBIN 27.7 pg (28-32); MEAN CORPUSCULAR HGB CONC 32.3 g/dL (31-35); MEAN CORPUSCULAR VOLUME 85.9 fL (81-99); MONOCYTES # (AUTO) 0.1 (0.2-0.8); MONOCYTES % 4.1 % (4.4-11.3); NEUTROPHILS # (AUTO) 2.6 (2.1-6.9); NEUTROPHILS % 76.2 % (38.7-80.0); PLATELET COUNT 207 x10e3/uL (140-360); RED BLOOD COUNT 4.47 x10e6/uL (3.6-5.1); RED CELL DISTRIBUTION WIDTH 14.7 % (11.7-14.4)
[2018-12-06 13:04] LABS: ALANINE AMINOTRANSFERASE 14 IU/L (0-55); ALBUMIN 2.9 g/dL (3.5-5.0); ALBUMIN/GLOBULIN RATIO 0.7 (0.8-2.0); ALKALINE PHOSPHATASE 42 IU/L (40-150); ANION GAP 13.8 mmol/L (8-16); BLOOD UREA NITROGEN 5 mg/dL (7-26); BUN/CREATININE RATIO 7 (6-25); CARBON DIOXIDE 26 mmol/L (22-29); CHLORIDE 99 mmol/L (98-107); CREATINE KINASE 11 IU/L (29-168); CREATININE, SERUM 0.71 mg/dL (0.57-1.11); EST GLOMERULAR FILTRATION RATE > 60 ML/MIN (60-); GLUCOSE 106 mg/dL (74-118); SODIUM 136 mmol/L (136-145)
[2018-12-06 13:06] LABS: POTASSIUM 2.8 mmol/L (3.5-5.1)
--- NOTE | 2018-12-06 13:10 | NUR ---
RECEIVED REPORT FROM SHAKEEL ALLEN; PT DENIES ANY DISCOMFORT AT THIS TIME, NO NEEDS VOICED, DENIES CP, STATES HER SYMPTOMS HAVE BEEN ONGOING FOR THE PAST FEW MONTHS. BED LOW/LOCKED, CALL LIGHT IN REACH, WILL CONTINUE TO MONITOR.
--- NOTE | 2018-12-06 13:16 | NUR ---
BEDSIDE REPORT TO NITHYA Byers
[2018-12-06] MEDS ORDERED: POTASSIUM CHLORIDE 20 MEQ TAB CR PO ONE ×2 (14:00→15:30)
--- NOTE | 2018-12-06 14:35 | Diagnostic Imaging Report ---
EXAM: CT Chest WITH contrast- Pulmonary Embolism Protocol INDICATION: Shortness of breath COMPARISON: Abdomen and pelvis CT of 11/28/2018 TECHNIQUE: Chest was scanned utilizing a multidetector helical scanner from the lung apex through the level of the diaphragm after administration of IV contrast. Thin section reconstructions were obtained with special concentration on the pulmonary arteries. Coronal and sagittal reformations were obtained. Pulmonary embolism protocol was performed. IV CONTRAST: 100 cc of Isovue 370 RADIATION DOSE: Total DLP: 533.21 mGy*cm Dose modulation, iterative reconstruction, and/or weight based adjustment of the mA/kV was utilized to reduce the radiation dose to as low as reasonably achievable. COMPLICATIONS: None FINDINGS: LINES/ TUBES: None. PULMONARY ARTERIES: No filling defect is identified within the pulmonary arteries to the segmental level. Main pulmonary artery measures 2.6 cm in diameter. LUNGS AND AIRWAYS: The central airways are patent. There is bibasilar dependent subsegmental atelectasis. No focal consolidation or pulmonary edema. No suspicious pulmonary masses. PLEURA: No pleural effusion or pneumothorax. HEART AND MEDIASTINUM: There is a 7 mm rim calcified nodule in the left thyroid gland which is likely clinically insignificant and no follow-up imaging is needed. No mediastinal, hilar or axillary lymphadenopathy. The heart is normal in size. No evidence of right heart strain. There is no pericardial effusion. Small sliding hiatal hernia.. UPPER ABDOMEN: Limited views of the abdomen demonstrate no focal abnormality of the partially visualized liver, spleen, pancreas, adrenals, or kidneys. BONES: No acute fracture or dislocation. Mild degenerative changes of the visualized spine. SOFT TISSUES: Unremarkable. IMPRESSION: No pulmonary embolism. No evidence of right heart strain. No focal pneumonia or pulmonary edema. Signed by: Francois Jim MD on 12/06/2018 2:31 PM
[2018-12-06] MEDS ORDERED: IOPAMIDOL 370 MG/ML 200 ML INFUS..BTL INJ ONE (14:50)
[2018-12-06] MEDS ORDERED: SODIUM CHLORIDE 0.9% 50ML 50 ML ONE (14:50)
[2018-12-06 15:34] VITALS: BP 137/77
== END 2018-12-06 15:35 | disposition home or self-care (01) ==
LOC: ER 11:38
DX: R06.09 Other forms of dyspnea (principal); R07.89 Other chest pain; K21.0 Gastro-esophageal reflux disease with esophagitis
CPT/HCPCS: 36415; 71260; 80053; 82550; 82553; 84484; 85025; 93005; 99284; Q9967

== ENCOUNTER → 2018-12-29 | Outpatient (CLI) | payer MEDICARE ==
--- NOTE | 2018-12-29 09:09 | Diagnostic Imaging Report ---
EXAM: US ABDOMEN COMPLETE DATE: 12/29/2018 8:01 AM INDICATION: Abdominal pain COMPARISON: Abdomen and pelvis CT of 11/28/2018 TECHNIQUE: Transverse and longitudinal velez scale and color doppler sonographic images of the upper abdomen were obtained. FINDINGS: There is no evidence of fluid or masses seen in the area of clinical concern in the right lower quadrant. LIVER 12.4 cm in the right midclavicular line. Increased echogenicity of the liver with normal contour, no masses. SPLEEN 8.6 cm in maximum diameter. Normal echogenicity, no masses. GALLBLADDER Mild sludge in the gallbladder. No gallbladder wall thickening, distension, stone, or pericholecystic fluid. Negative reported sonographic Wallace's sign. Gallbladder wall measures 2 mm. BILE DUCTS No intra nor extra-hepatic biliary dilation. Common bile duct measures 0.2cm PANCREAS: Visualized portions are normal. RIGHT KIDNEY: 8.8 cm Echogenicity: Normal Collecting System: No hydronephrosis Stones: None Cyst/Mass: None LEFT KIDNEY: 10.1 cm Echogenicity: Normal Collecting System: No hydronephrosis Stones: None Cyst/Mass: None VESSELS: Aorta: Visualized portions are within normal size limits Inferior Vena Cava: Visualized portions are normal Main Portal Vein: 0.7 cm, normal size with hepatopetal flow. FREE FLUID: None IMPRESSION: Hepatic steatosis. Mild sludge in the gallbladder. No sonographic evidence of cholelithiasis or cholecystitis. No hydronephrosis. Signed by: Francois Jim MD on 12/29/2018 9:06 AM
== END ==
LOC: US 07:47
PROVIDERS: ATTEND Internal Medicine Gastroenterology
DX: K30 Functional dyspepsia (principal); K58.2 Mixed irritable bowel syndrome; E11.9 Type 2 diabetes mellitus without complications; I10 Essential (primary) hypertension; E66.3 Overweight; Z71.3 Dietary counseling and surveillance
CPT/HCPCS: 76700

== ENCOUNTER 2020-06-05 08:50 | Inpatient (IN) | payer MEDICARE ==
[~2020-06-05] VITALS: Ht 157.5 cm; Wt 77.1 kg
[2020-06-05] MEDS: SODIUM CHLORIDE 0.9% 1000ML 1,000 ML IV SCH ×2 (02:15→13:33)
[2020-06-05] MEDS ORDERED: CHLORTHALIDONE25 MG PO (09:15)
[2020-06-05] MEDS ORDERED: NEPHRO-VITE TABL1 EA PO (09:15)
[2020-06-05] MEDS ORDERED: METHOTREXATE2.5 MG PO (09:15)
[2020-06-05] MEDS ORDERED: ATORVASTATIN CA20 MG PO (09:15)
[2020-06-05] MEDS ORDERED: METFORMIN HCL500 MG PO (09:15)
[2020-06-05] MEDS ORDERED: HYDROXYCHLOROQ200 MG PO (09:15)
[2020-06-05] MEDS ORDERED: MOBIC15 MG PO (09:15)
[2020-06-05] MEDS ORDERED: LEVOTHYROXINE50 MCG PO (09:15)
[2020-06-05] MEDS ORDERED: PANTOPRAZOLE SO40 MG PO (09:15)
[2020-06-05] MEDS ORDERED: LACTATED RINGER'S 1,000 ML INJ ONE ×2 (10:15→13:30)
[2020-06-05 10:34] LABS: BASOPHILS # (AUTO) 0.1 (0.0-0.1); BASOPHILS % 0.4 % (0.0-1.0); EOSINOPHILS # (AUTO) 0.1 (0.0-0.4); EOSINOPHILS % 0.2 % (0.0-6.0); HEMATOCRIT 35.8 % (34.2-44.1); HEMOGLOBIN 12.2 g/dL (12.0-16.0); LYMPHOCYTES # (AUTO) 0.4 (1.0-3.2); LYMPHOCYTES % 1.9 % (18.0-39.1); MEAN CORPUSCULAR HGB CONC 34.1 g/dL (31-35); MONOCYTES # (AUTO) 0.7 (0.2-0.8); NEUTROPHILS # (AUTO) 21.3 (2.1-6.9); NEUTROPHILS % 93.7 % (38.7-80.0); PLATELET COUNT 286 x10e3/uL (140-360); RED BLOOD COUNT 3.81 x10e6/uL (3.6-5.1); RED CELL DISTRIBUTION WIDTH 13.4 % (11.7-14.4)
[2020-06-05] MEDS ORDERED: NITROFURANTOIN100 MG PO (10:37)
[2020-06-05 10:52] LABS: CLARITY,URINE SL CLOUDY (CLEAR); COLOR,URINE AMBER (YELLOW); KETONES,URINE 1+ (NEGATIVE); LEUKOCYTE ESTERASE ,URINE NEGATIVE (NEGATIVE); NITRITE,URINE NEGATIVE (NEGATIVE); PROTEIN,URINE DIPSTICK 2+ (NEGATIVE)
[2020-06-05 10:52] LABS: ALBUMIN 2.9 g/dL (3.5-5.0); ALBUMIN/GLOBULIN RATIO 0.7 (0.8-2.0); ANION GAP 17.3 mmol/L (8-16); CALCIUM 8.2 mg/dL (8.4-10.2); CREATININE, SERUM 1.24 mg/dL (0.57-1.11); POTASSIUM 3.3 mmol/L (3.5-5.1)
[2020-06-05] MEDS ORDERED: CEFTRIAXONE SOD 1 GM/NS 50 ML 50 ML IV ONE (11:00)
[2020-06-05 11:01] LABS: BACTERIA,URINE RARE /HPF; EPITHELIAL CELLS,URINE FEW /LPF; MUCUS,URINE FEW (RARE); RBC,URINE 0-5 /HPF (0-5)
[2020-06-05] MEDS ORDERED: SODIUM CHLORIDE 0.9% 50ML 50 ML ONE (11:54)
[2020-06-05] MEDS ORDERED: IOPAMIDOL 370 MG/ML 200 ML INFUS..BTL INJ ONE (11:55)
[2020-06-05] MEDS ORDERED: METRONIDAZOLE 750MG/NS 150ML 150 ML IV STA (13:18)
[2020-06-05] MEDS ORDERED: FENTANYL CITRATE/PF 100MCG/2 ML INJ IV ONE (13:45)
[2020-06-05 14:28] VITALS: BP 108/84
[2020-06-05 14:45] VITALS: BP 108/84
[2020-06-05] MEDS: VANCOMYCIN 1GM/NS 250 ML 250 ML IV SCH (16:03)
[2020-06-05 16:50] LABS: LYMPHOCYTES % (MANUAL) 5 % (19-48); MONOCYTES % (MANUAL) 5 % (3.4-9.0); NEUTROPHILS % (MANUAL) 90 % (40-74)
[2020-06-05 16:51] LABS: PLATELET ESTIMATE ADEQUATE; PLATELET MORPHOLOGY COMMENT FEW LARGE; RBC MORPHOLOGY COMMENT NORMAL
[2020-06-05] MEDS: PIPER-TAZ 3.375 GM 50 ML IV SCH (19:45)
[2020-06-05] MEDS: HYDROMORPHONE 1MG/1ML INJ IV PRN (19:45)
[2020-06-05 20:00] VITALS: BP 115/51
[2020-06-05 20:11] VITALS: BP 115/51
[2020-06-05] MEDS: INSULIN REGULAR, HUMAN 100 UNIT/1 ML 3ML VIAL SQ SCH (20:26)
[2020-06-05] MEDS ORDERED: DEXTROSE 50% SYRINGE 50 ML IV PRN (20:30)
[2020-06-05] MEDS: ATORVASTATIN 20 MG TAB PO SCH (21:16)
[2020-06-06] VITALS (8 sets, daily range): BP systolic 102–128; BP diastolic 54–65
[2020-06-06] MEDS: ACETAMINOPHEN 325 MG TAB PO PRN (00:28)
[2020-06-06] MEDS: HYDROMORPHONE 1MG/1ML INJ IV PRN ×2 (00:28→06:39)
[2020-06-06] MEDS: SODIUM CHLORIDE 0.9% 1000ML 1,000 ML IV SCH ×3 (02:15→21:08)
[2020-06-06] MEDS: PIPER-TAZ 3.375 GM 50 ML IV SCH ×3 (02:15→18:00)
[2020-06-06 06:14] LABS: BASOPHILS % 0.2 % (0.0-1.0); EOSINOPHILS % 0.1 % (0.0-6.0); HEMATOCRIT 27.1 % (34.2-44.1); HEMOGLOBIN 9.1 g/dL (12.0-16.0); LYMPHOCYTES # (AUTO) 0.4 (1.0-3.2); LYMPHOCYTES % 2.3 % (18.0-39.1); MEAN CORPUSCULAR HEMOGLOBIN 32.3 pg (28-32); MEAN CORPUSCULAR HGB CONC 33.6 g/dL (31-35); MEAN CORPUSCULAR VOLUME 96.1 fL (81-99); MONOCYTES # (AUTO) 0.9 (0.2-0.8); NEUTROPHILS % 91.7 % (38.7-80.0); PLATELET COUNT 244 x10e3/uL (140-360); RED BLOOD COUNT 2.82 x10e6/uL (3.6-5.1); RED CELL DISTRIBUTION WIDTH 13.5 % (11.7-14.4)
[2020-06-06 06:38] LABS: ANION GAP 7.7 mmol/L (8-16); BLOOD UREA NITROGEN 20 mg/dL (7-26); BUN/CREATININE RATIO 25 (6-25); CALCIUM 7.1 mg/dL (8.4-10.2); CARBON DIOXIDE 32 mmol/L (22-29); CHLORIDE 103 mmol/L (98-107); EST GLOMERULAR FILTRATION RATE > 60 ML/MIN (60-); GLUCOSE 112 mg/dL (74-118); SODIUM 140 mmol/L (136-145)
[2020-06-06 06:40] LABS: POTASSIUM 2.7 mmol/L (3.5-5.1)
[2020-06-06] MEDS ORDERED: POTASSIUM CHLORIDE 20MEQ/100ML 200 ML IV ONE ×2 (07:00→18:00)
[2020-06-06] MEDS: INSULIN REGULAR, HUMAN 100 UNIT/1 ML 3ML VIAL SQ SCH ×4 (07:30→21:00)
[2020-06-06] MEDS: LEVOTHYROXINE SODIUM 50 MCG TAB PO SCH (07:30)
[2020-06-06] MEDS: PANTOPRAZOLE SOD 40 MG TABEC PO SCH (08:52)
[2020-06-06] MEDS: FOLIC ACID/CYANOCOB/PYRIDOXINE TAB PO SCH (08:52)
[2020-06-06] MEDS: HYDROXYCHLOROQUINE SULFATE 200 MG TAB PO SCH ×2 (08:52→16:03)
[2020-06-06] MEDS: POTASSIUM CHLORIDE 10MEQ EA PO SCH ×2 (11:18→16:03)
[2020-06-06] MEDS: VANCOMYCIN 1GM/NS 250 ML 250 ML IV SCH (16:00)
[2020-06-06] MEDS ORDERED: POTASSIUM CHLORIDE 10MEQ EA PO ONE (18:00)
[2020-06-06] MEDS: ATORVASTATIN 20 MG TAB PO SCH (21:08)
[2020-06-07] VITALS (8 sets, daily range): BP systolic 109–128; BP diastolic 53–75
[2020-06-07] MEDS: PIPER-TAZ 3.375 GM 50 ML IV SCH ×3 (02:00→17:03)
[2020-06-07] MEDS: SODIUM CHLORIDE 0.9% 1000ML 1,000 ML IV SCH ×2 (05:54→11:42)
[2020-06-07] MEDS: HYDROMORPHONE 1MG/1ML INJ IV PRN ×3 (06:13→18:30)
[2020-06-07 07:15] LABS: BASOPHILS # (AUTO) 0.1 (0.0-0.1); BASOPHILS % 0.5 % (0.0-1.0); EOSINOPHILS # (AUTO) 0.1 (0.0-0.4); EOSINOPHILS % 1.3 % (0.0-6.0); HEMATOCRIT 32.5 % (34.2-44.1); HEMOGLOBIN 10.5 g/dL (12.0-16.0); LYMPHOCYTES # (AUTO) 0.5 (1.0-3.2); LYMPHOCYTES % 5.6 % (18.0-39.1); MEAN CORPUSCULAR HEMOGLOBIN 32.4 pg (28-32); MEAN CORPUSCULAR HGB CONC 32.3 g/dL (31-35); MEAN CORPUSCULAR VOLUME 100.3 fL (81-99); MONOCYTES # (AUTO) 0.6 (0.2-0.8); MONOCYTES % 6.7 % (4.4-11.3); NEUTROPHILS # (AUTO) 7.9 (2.1-6.9); NEUTROPHILS % 85.3 % (38.7-80.0); PLATELET COUNT 246 x10e3/uL (140-360); RED BLOOD COUNT 3.24 x10e6/uL (3.6-5.1); RED CELL DISTRIBUTION WIDTH 13.7 % (11.7-14.4)
[2020-06-07] MEDS: INSULIN REGULAR, HUMAN 100 UNIT/1 ML 3ML VIAL SQ SCH ×4 (07:30→21:00)
[2020-06-07] MEDS: LEVOTHYROXINE SODIUM 50 MCG TAB PO SCH (07:30)
[2020-06-07 07:37] LABS: ANION GAP 9.7 mmol/L (8-16); BLOOD UREA NITROGEN 11 mg/dL (7-26); BUN/CREATININE RATIO 17 (6-25); CALCIUM 7.6 mg/dL (8.4-10.2); CARBON DIOXIDE 25 mmol/L (22-29); CHLORIDE 109 mmol/L (98-107); CREATININE, SERUM 0.64 mg/dL (0.57-1.11); EST GLOMERULAR FILTRATION RATE > 60 ML/MIN (60-); GLUCOSE 98 mg/dL (74-118); POTASSIUM 3.7 mmol/L (3.5-5.1); SODIUM 140 mmol/L (136-145)
[2020-06-07 07:51] LABS: MAGNESIUM 1.9 MG/DL (1.3-2.1); PHOSPHORUS 2.1 MG/DL (2.3-4.7)
[2020-06-07] MEDS: POTASSIUM CHLORIDE 10MEQ EA PO SCH ×2 (09:00→17:00)
[2020-06-07] MEDS: HYDROXYCHLOROQUINE SULFATE 200 MG TAB PO SCH ×2 (09:00→17:00)
[2020-06-07] MEDS: PANTOPRAZOLE SOD 40 MG TABEC PO SCH (09:00)
[2020-06-07] MEDS: FOLIC ACID/CYANOCOB/PYRIDOXINE TAB PO SCH (09:00)
[2020-06-07] MEDS: ACETAMINOPHEN 325 MG TAB PO PRN (09:42)
[2020-06-07] MEDS: VANCOMYCIN 1GM/NS 250 ML 250 ML IV SCH (16:00)
[2020-06-07] MEDS: ATORVASTATIN 20 MG TAB PO SCH (21:00)
[2020-06-08 00:46] VITALS: BP 131/59
[2020-06-08] MEDS: PIPER-TAZ 3.375 GM 50 ML IV SCH ×3 (02:09→19:16)
[2020-06-08] MEDS: SODIUM CHLORIDE 0.9% 1000ML 1,000 ML IV SCH ×4 (02:09→18:30)
[2020-06-08] MEDS: HYDROMORPHONE 1MG/1ML INJ IV PRN ×4 (05:21→22:39)
[2020-06-08 07:13] LABS: BASOPHILS # (AUTO) 0.1 (0.0-0.1); BASOPHILS % 0.7 % (0.0-1.0); EOSINOPHILS # (AUTO) 0.3 (0.0-0.4); HEMATOCRIT 30.2 % (34.2-44.1); HEMOGLOBIN 9.9 g/dL (12.0-16.0); LYMPHOCYTES # (AUTO) 0.5 (1.0-3.2); LYMPHOCYTES % 7.8 % (18.0-39.1); MEAN CORPUSCULAR HEMOGLOBIN 32.2 pg (28-32); MEAN CORPUSCULAR HGB CONC 32.8 g/dL (31-35); MEAN CORPUSCULAR VOLUME 98.4 fL (81-99); MONOCYTES # (AUTO) 0.5 (0.2-0.8); MONOCYTES % 7.8 % (4.4-11.3); NEUTROPHILS # (AUTO) 5.3 (2.1-6.9); NEUTROPHILS % 78.7 % (38.7-80.0); PLATELET COUNT 339 x10e3/uL (140-360); RED BLOOD COUNT 3.07 x10e6/uL (3.6-5.1); RED CELL DISTRIBUTION WIDTH 13.8 % (11.7-14.4)
[2020-06-08] MEDS: INSULIN REGULAR, HUMAN 100 UNIT/1 ML 3ML VIAL SQ SCH ×4 (07:30→20:54)
[2020-06-08 07:39] LABS: ANION GAP 9.6 mmol/L (8-16); BLOOD UREA NITROGEN 9 mg/dL (7-26); BUN/CREATININE RATIO 15 (6-25); CALCIUM 7.2 mg/dL (8.4-10.2); CARBON DIOXIDE 26 mmol/L (22-29); CHLORIDE 108 mmol/L (98-107); CREATININE, SERUM 0.62 mg/dL (0.57-1.11); EST GLOMERULAR FILTRATION RATE > 60 ML/MIN (60-); GLUCOSE 79 mg/dL (74-118); POTASSIUM 3.6 mmol/L (3.5-5.1); SODIUM 140 mmol/L (136-145)
[2020-06-08 08:17] VITALS: BP 151/75
[2020-06-08] MEDS: POTASSIUM CHLORIDE 10MEQ EA PO SCH ×2 (09:44→18:07)
[2020-06-08] MEDS: LEVOTHYROXINE SODIUM 50 MCG TAB PO SCH (09:44)
[2020-06-08] MEDS: FOLIC ACID/CYANOCOB/PYRIDOXINE TAB PO SCH (09:44)
[2020-06-08] MEDS: HYDROXYCHLOROQUINE SULFATE 200 MG TAB PO SCH ×2 (09:45→18:07)
[2020-06-08] MEDS: PANTOPRAZOLE SOD 40 MG TABEC PO SCH (09:45)
[2020-06-08 12:01] VITALS: BP 112/60
[2020-06-08 15:51] VITALS: BP 128/59
[2020-06-08] MEDS: VANCOMYCIN 1GM/NS 250 ML 250 ML IV SCH (16:45)
[2020-06-08 19:35] VITALS: BP 125/71
[2020-06-08 20:34] VITALS: BP 125/71
[2020-06-08] MEDS: ATORVASTATIN 20 MG TAB PO SCH (20:54)
[2020-06-09] VITALS (7 sets, daily range): BP systolic 116–151; BP diastolic 53–83
[2020-06-09] MEDS: PIPER-TAZ 3.375 GM 50 ML IV SCH ×3 (01:59→18:12)
[2020-06-09] MEDS: SODIUM CHLORIDE 0.9% 1000ML 1,000 ML IV SCH ×4 (01:59→21:02)
[2020-06-09] MEDS: HYDROMORPHONE 1MG/1ML INJ IV PRN ×2 (04:53→18:12)
[2020-06-09] MEDS: INSULIN REGULAR, HUMAN 100 UNIT/1 ML 3ML VIAL SQ SCH ×4 (07:30→20:51)
[2020-06-09] MEDS: LEVOTHYROXINE SODIUM 50 MCG TAB PO SCH (07:30)
[2020-06-09] MEDS: HYDROXYCHLOROQUINE SULFATE 200 MG TAB PO SCH ×2 (09:00→17:46)
[2020-06-09] MEDS: FOLIC ACID/CYANOCOB/PYRIDOXINE TAB PO SCH (09:00)
[2020-06-09] MEDS: PANTOPRAZOLE SOD 40 MG TABEC PO SCH (09:00)
[2020-06-09] MEDS: POTASSIUM CHLORIDE 10MEQ EA PO SCH ×2 (09:00→17:46)
[2020-06-09] MEDS ORDERED: FLUCONAZOLE 100 MG/NS 50 ML 50 ML IV SCH ×2 (14:00→18:00)
[2020-06-09] MEDS: VANCOMYCIN 1GM/NS 250 ML 250 ML IV SCH (17:46)
[2020-06-09] MEDS: ATORVASTATIN 20 MG TAB PO SCH (21:02)
[2020-06-10] MEDS: SODIUM CHLORIDE 0.9% 1000ML 1,000 ML IV SCH ×2 (01:18→09:55)
[2020-06-10] MEDS: PIPER-TAZ 3.375 GM 50 ML IV SCH ×2 (02:13→09:55)
[2020-06-10] MEDS: HYDROMORPHONE 1MG/1ML INJ IV PRN (04:06)
[2020-06-10 05:33] VITALS: BP 138/71
[2020-06-10 06:33] LABS: BASOPHILS % 0.2 % (0.0-1.0); EOSINOPHILS # (AUTO) 0.2 (0.0-0.4); EOSINOPHILS % 3.5 % (0.0-6.0); HEMATOCRIT 26.3 % (34.2-44.1); HEMOGLOBIN 8.9 g/dL (12.0-16.0); LYMPHOCYTES # (AUTO) 0.5 (1.0-3.2); LYMPHOCYTES % 9.5 % (18.0-39.1); MEAN CORPUSCULAR HEMOGLOBIN 31.4 pg (28-32); MEAN CORPUSCULAR HGB CONC 33.8 g/dL (31-35); MEAN CORPUSCULAR VOLUME 92.9 fL (81-99); MONOCYTES # (AUTO) 0.4 (0.2-0.8); MONOCYTES % 7.5 % (4.4-11.3); NEUTROPHILS # (AUTO) 4.3 (2.1-6.9); NEUTROPHILS % 77.7 % (38.7-80.0); PLATELET COUNT 380 x10e3/uL (140-360); RED BLOOD COUNT 2.83 x10e6/uL (3.6-5.1); RED CELL DISTRIBUTION WIDTH 13.5 % (11.7-14.4)
[2020-06-10 07:07] LABS: ANION GAP 7.4 mmol/L (8-16); BLOOD UREA NITROGEN < 5 mg/dL (7-26); CALCIUM 7.2 mg/dL (8.4-10.2); CARBON DIOXIDE 26 mmol/L (22-29); CHLORIDE 107 mmol/L (98-107); CREATININE, SERUM 0.59 mg/dL (0.57-1.11); EST GLOMERULAR FILTRATION RATE > 60 ML/MIN (60-); GLUCOSE 74 mg/dL (74-118); POTASSIUM 3.4 mmol/L (3.5-5.1); SODIUM 137 mmol/L (136-145)
[2020-06-10] MEDS: LEVOTHYROXINE SODIUM 50 MCG TAB PO SCH (07:30)
[2020-06-10] MEDS: INSULIN REGULAR, HUMAN 100 UNIT/1 ML 3ML VIAL SQ SCH ×2 (07:30→11:30)
[2020-06-10 07:40] LABS: BUN/CREATININE RATIO 8 (6-25)
[2020-06-10] MEDS ORDERED: POTASSIUM CHLORIDE 20 MEQ TAB CR PO STA (08:16)
[2020-06-10] MEDS: PANTOPRAZOLE SOD 40 MG TABEC PO SCH (09:00)
[2020-06-10] MEDS: FOLIC ACID/CYANOCOB/PYRIDOXINE TAB PO SCH (09:00)
[2020-06-10] MEDS: POTASSIUM CHLORIDE 10MEQ EA PO SCH (09:00)
[2020-06-10] MEDS: HYDROXYCHLOROQUINE SULFATE 200 MG TAB PO SCH (09:00)
[2020-06-10 09:27] VITALS: BP 135/63
[2020-06-10 12:00] VITALS: BP 192/102
[2020-06-11] MEDS ORDERED: METHOTREXATE SOD 2.5 MG TAB PO SCH (09:00)
== END 2020-06-10 15:45 | disposition home or self-care (01) | DRG 394 ==
LOC: ER 09:24 → ERHOLD 13:34 → MED/SURG2 14:40
PROVIDERS: ADMIT Internal Medicine; ATTEND Internal Medicine
DX: K61.0 Anal abscess (principal); N17.9 Acute kidney failure, unspecified; B37.89 Other sites of candidiasis; E11.9 Type 2 diabetes mellitus without complications; M06.9 Rheumatoid arthritis, unspecified; E87.6 Hypokalemia; E66.9 Obesity, unspecified; Z68.31 Body mass index [BMI] 31.0-31.9, adult; K21.9 Gastro-esophageal reflux disease without esophagitis; K76.0 Fatty (change of) liver, not elsewhere classified; I10 Essential (primary) hypertension; K57.90 Diverticulosis of intestine, part unspecified, without perforation or abscess without bleeding; N20.0 Calculus of kidney; B96.5 Pseudomonas (aeruginosa) (mallei) (pseudomallei) as the cause of diseases classified elsewhere; B96.1 Klebsiella pneumoniae [K. pneumoniae] as the cause of diseases classified elsewhere; Z20.822 Contact with and (suspected) exposure to COVID-19
CPT/HCPCS: 36415; 71045; 74177; 80048; 80053; 80061; 80202; 81001; 82948; 83036; 83605; 83735; 84100; 84132; 85025; 87040; 87071; 87075; 87086; 87186; 87205; 99284; J0696; J1170; J1450; J1817; J2543; J3010; J3370; J3480; J7030; J7121; Q9967; U0002

== ENCOUNTER 2020-08-03 08:37 | Emergency (ER) | payer MEDICARE, OTHER ==
[~2020-08-03] VITALS: Ht 157.5 cm; Wt 77.1 kg
[~2020-08-03 08:37] MED LIST changes: +ATORVASTATIN CA20 MG PO; +CHLORTHALIDONE25 MG PO; +HYDROXYCHLOROQ200 MG PO; +LEVOTHYROXINE50 MCG PO; +METFORMIN HCL500 MG PO; +METHOTREXATE2.5 MG PO; +MOBIC15 MG PO; +NEPHRO-VITE TABL1 EA PO; +NITROFURANTOIN100 MG PO; +PANTOPRAZOLE SO40 MG PO
[2020-08-03] MEDS ORDERED: PERIDEX473 M1 PO (08:58)
[2020-08-03] MEDS ORDERED: CEPHALEXIN500 MG PO (08:58)
== END 2020-08-03 09:06 | disposition home or self-care (01) ==
LOC: ER 08:43
DX: S00.521A Blister (nonthermal) of lip, initial encounter (principal); I10 Essential (primary) hypertension; E11.9 Type 2 diabetes mellitus without complications; E66.9 Obesity, unspecified
CPT/HCPCS: 99283

== ENCOUNTER 2020-08-19 17:42 | Inpatient (IN) | payer MEDICARE, OTHER ==
[~2020-08-19] VITALS: Ht 157.5 cm; Wt 65.3 kg
[~2020-08-19 17:42] MED LIST changes: +CEPHALEXIN500 MG PO; +PERIDEX473 M1 PO
[2020-08-19 18:23] LABS: BASOPHILS % 2.3 % (0.0-1.0); EOSINOPHILS % 2.3 % (0.0-6.0); HEMOGLOBIN 11.3 g/dL (12.0-16.0); LYMPHOCYTES # (AUTO) 0.4 (1.0-3.2); MEAN CORPUSCULAR HEMOGLOBIN 34.2 pg (28-32); MEAN CORPUSCULAR HGB CONC 34.2 g/dL (31-35); MONOCYTES % 2.3 % (4.4-11.3); NEUTROPHILS # (AUTO) 0.4 (2.1-6.9); NEUTROPHILS % 41.9 % (38.7-80.0); PLATELET COUNT 434 x10e3/uL (140-360); RED CELL DISTRIBUTION WIDTH 17.1 % (11.7-14.4)
[2020-08-19 18:40] LABS: ALANINE AMINOTRANSFERASE 23 IU/L (0-55); ALBUMIN 3.2 g/dL (3.5-5.0); ALBUMIN/GLOBULIN RATIO 0.8 (0.8-2.0); ALKALINE PHOSPHATASE 77 IU/L (40-150); BLOOD UREA NITROGEN 43 mg/dL (7-26); BUN/CREATININE RATIO 36 (6-25); CARBON DIOXIDE 26 mmol/L (22-29); CREATINE KINASE 17 IU/L (29-168); CREATININE, SERUM 1.19 mg/dL (0.57-1.11); EST GLOMERULAR FILTRATION RATE 45 ML/MIN (60-); GLUCOSE 147 mg/dL (74-118)
[2020-08-19 18:42] LABS: CALCIUM 8.6 mg/dL (8.4-10.2)
[2020-08-19 18:52] LABS: ANION GAP 17.5 mmol/L (8-16); CHLORIDE 97 mmol/L (98-107); POTASSIUM 3.5 mmol/L (3.5-5.1); SODIUM 137 mmol/L (136-145)
[2020-08-19 18:54] LABS: CLARITY,URINE CLEAR (CLEAR); COLOR,URINE YELLOW (YELLOW)
[2020-08-19 18:55] LABS: KETONES,URINE NEGATIVE (NEGATIVE); LEUKOCYTE ESTERASE ,URINE NEGATIVE (NEGATIVE); NITRITE,URINE NEGATIVE (NEGATIVE); PROTEIN,URINE DIPSTICK NEGATIVE (NEGATIVE); URINE UROBILINOGEN 0.2 mg/dL (0.2 - 1)
[2020-08-19 18:59] LABS: TRANSITIONAL EPI CELLS,URINE RARE; WBC,URINE (MAN) 0-5 /HPF (0-5)
[2020-08-19] MEDS ORDERED: DEXTROSE 50% SYRINGE 50 ML IV PRN (19:15)
[2020-08-19] MEDS ORDERED: CEFEPIME 1GM/NS 0.9% 50 ML 50 ML IV SCH (19:15)
[2020-08-19] MEDS ORDERED: FLUCONAZOLE 200 MG/100 ML 100 ML IV SCH (19:15)
[2020-08-19 19:17] LABS: MAGNESIUM 2.5 MG/DL (1.3-2.1)
[2020-08-19] MEDS: CEFEPIME HCL 1GM 1 GM in SODIUM CHLORIDE 0.9% 50ML 50 ML IV SCH (19:41)
[2020-08-19] MEDS: INSULIN REGULAR, HUMAN 100 UNIT/1 ML 3ML VIAL SQ SCH (21:00)
[2020-08-19] MEDS: SODIUM CHLORIDE 0.9% 1000ML 1,000 ML IV SCH (21:20)
[2020-08-19] MEDS: NYSTATIN SUSPENSION 5 ML UDC PO SCH (21:20)
[2020-08-19 22:08] LABS: PLATELET ESTIMATE ADEQUATE; PLATELET MORPHOLOGY COMMENT NORMAL; RBC MORPHOLOGY COMMENT NORMAL
[2020-08-20] VITALS (8 sets, daily range): BP systolic 104–139; BP diastolic 60–87
[2020-08-20] MEDS: ONDANSETRON HCL INJ 2MG/ML 2ML 2 MG/ML VIAL IV PRN (04:24)
[2020-08-20] MEDS: SODIUM CHLORIDE 0.9% 1000ML 1,000 ML IV SCH ×2 (05:30→15:35)
[2020-08-20] MEDS: NYSTATIN SUSPENSION 5 ML UDC PO SCH ×3 (05:31→19:55)
[2020-08-20 06:55] LABS: NEUTROPHILS % (MANUAL) 28 % (40-74)
[2020-08-20 06:56] LABS: MONOCYTES % (MANUAL) 4 % (3.4-9.0)
[2020-08-20 06:57] LABS: LYMPHOCYTES % (MANUAL) 18 % (19-48)
[2020-08-20 07:30] LABS: BASOPHILS % 2.5 % (0.0-1.0); EOSINOPHILS % 3.8 % (0.0-6.0); HEMATOCRIT 31.6 % (34.2-44.1); HEMOGLOBIN 10.7 g/dL (12.0-16.0); LYMPHOCYTES # (AUTO) 0.4 (1.0-3.2); LYMPHOCYTES % 43.8 % (18.0-39.1); MEAN CORPUSCULAR HGB CONC 33.9 g/dL (31-35); MEAN CORPUSCULAR VOLUME 100.3 fL (81-99); MONOCYTES % 2.5 % (4.4-11.3); NEUTROPHILS # (AUTO) 0.4 (2.1-6.9); NEUTROPHILS % 46.1 % (38.7-80.0); PLATELET COUNT 323 x10e3/uL (140-360); RED BLOOD COUNT 3.15 x10e6/uL (3.6-5.1); RED CELL DISTRIBUTION WIDTH 17.1 % (11.7-14.4)
[2020-08-20] MEDS: INSULIN REGULAR, HUMAN 100 UNIT/1 ML 3ML VIAL SQ SCH ×4 (07:30→19:36)
[2020-08-20 07:51] LABS: ALANINE AMINOTRANSFERASE 20 IU/L (0-55); ALBUMIN 2.8 g/dL (3.5-5.0); ALBUMIN/GLOBULIN RATIO 0.8 (0.8-2.0); ALKALINE PHOSPHATASE 67 IU/L (40-150); ANION GAP 13.4 mmol/L (8-16); BLOOD UREA NITROGEN 39 mg/dL (7-26); BUN/CREATININE RATIO 46 (6-25); CARBON DIOXIDE 27 mmol/L (22-29); CHLORIDE 102 mmol/L (98-107); CREATININE, SERUM 0.85 mg/dL (0.57-1.11); EST GLOMERULAR FILTRATION RATE > 60 ML/MIN (60-); GLUCOSE 94 mg/dL (74-118); POTASSIUM 3.4 mmol/L (3.5-5.1); SODIUM 139 mmol/L (136-145)
[2020-08-20] MEDS: LEVOTHYROXINE SODIUM 50 MCG TAB PO SCH (07:51)
[2020-08-20] MEDS ORDERED: FILGRASTIM 300 MCG/ML VIAL SC ONE (08:00)
[2020-08-20 08:16] LABS: CHOL/HDL RATIO 4.2 (3.0-3.6)
[2020-08-20 09:36] LABS: ELLIPTOCYTE, RBC SLIGHT; EOSINOPHILS % (MANUAL) 5 % (0-7); LYMPHOCYTES % (MANUAL) 34 % (19-48); MONOCYTES % (MANUAL) 1 % (3.4-9.0); NEUTROPHILS % (MANUAL) 57 % (40-74); NUCLEATED RED BLOOD CELLS 1
[2020-08-20 09:37] LABS: ANISOCYTOSIS SLIGHT; OVALOCYTES FEW
[2020-08-20 09:38] LABS: PLATELET ESTIMATE ADEQUATE; PLATELET MORPHOLOGY COMMENT RARE EDTA CLUMPING; RBC MORPHOLOGY COMMENT ABNORMAL
[2020-08-20 17:57] LABS: PATHOLOGY REVIEW SEE COMENT
[2020-08-20] MEDS ORDERED: CEFEPIME HCL 1 GM VIAL ONE (19:53)
[2020-08-20] MEDS ORDERED: SODIUM CHLORIDE 0.9% 50ML 50 ML ONE (19:54)
[2020-08-20] MEDS: CEFEPIME HCL 1GM 1 GM in SODIUM CHLORIDE 0.9% 50ML 50 ML IV SCH (19:55)
[2020-08-20] MEDS: FLUCONAZOLE 200 MG/100 ML 100 ML IV SCH (19:55)
[2020-08-20] MEDS: ATORVASTATIN 20 MG TAB PO SCH (19:55)
[2020-08-21] VITALS (8 sets, daily range): BP systolic 116–141; BP diastolic 62–69
[2020-08-21] MEDS: SODIUM CHLORIDE 0.9% 1000ML 1,000 ML IV SCH ×3 (00:05→18:27)
[2020-08-21] MEDS: ONDANSETRON HCL INJ 2MG/ML 2ML 2 MG/ML VIAL IV PRN (01:17)
[2020-08-21] MEDS: LEVOTHYROXINE SODIUM 50 MCG TAB PO SCH (06:22)
[2020-08-21] MEDS: NYSTATIN SUSPENSION 5 ML UDC PO SCH ×3 (06:22→21:35)
[2020-08-21] MEDS: INSULIN REGULAR, HUMAN 100 UNIT/1 ML 3ML VIAL SQ SCH ×4 (07:30→21:00)
[2020-08-21] MEDS ORDERED: FILGRASTIM 300 MCG/ML VIAL SC NR (07:45)
[2020-08-21 08:48] LABS: BASOPHILS % 0.7 % (0.0-1.0); EOSINOPHILS % 0.7 % (0.0-6.0); HEMATOCRIT 26.2 % (34.2-44.1); HEMOGLOBIN 8.6 g/dL (12.0-16.0); LYMPHOCYTES # (AUTO) 0.3 (1.0-3.2); LYMPHOCYTES % 11.6 % (18.0-39.1); MEAN CORPUSCULAR HEMOGLOBIN 33.5 pg (28-32); MEAN CORPUSCULAR HGB CONC 32.8 g/dL (31-35); MEAN CORPUSCULAR VOLUME 101.9 fL (81-99); MONOCYTES % 0.7 % (4.4-11.3); NEUTROPHILS # (AUTO) 2.3 (2.1-6.9); NEUTROPHILS % 85.6 % (38.7-80.0); PLATELET COUNT 171 x10e3/uL (140-360); RED BLOOD COUNT 2.57 x10e6/uL (3.6-5.1)
[2020-08-21 09:09] LABS: ANION GAP 10.3 mmol/L (8-16); BLOOD UREA NITROGEN 21 mg/dL (7-26); BUN/CREATININE RATIO 32 (6-25); CALCIUM 7.2 mg/dL (8.4-10.2); CARBON DIOXIDE 26 mmol/L (22-29); CHLORIDE 107 mmol/L (98-107); CREATININE, SERUM 0.66 mg/dL (0.57-1.11); EST GLOMERULAR FILTRATION RATE > 60 ML/MIN (60-); GLUCOSE 77 mg/dL (74-118); POTASSIUM 3.3 mmol/L (3.5-5.1); SODIUM 140 mmol/L (136-145)
[2020-08-21] MEDS: CIPROFLOXACIN-DEXAMETHASONE (OTIC) 7.5 ML BOTTLE OT SCH ×2 (09:40→21:34)
[2020-08-21 09:42] LABS: BAND NEUTROPHILS % (MANUAL) 3 %; EOSINOPHILS % (MANUAL) 1 % (0-7); LYMPHOCYTES % (MANUAL) 13 % (19-48); MONOCYTES % (MANUAL) 1 % (3.4-9.0); NEUTROPHILS % (MANUAL) 82 % (40-74)
[2020-08-21 09:43] LABS: ANISOCYTOSIS MODERATE; HYPOCHROMASIA MODERATE; OVALOCYTES FEW; PLATELET ESTIMATE ADEQUATE; PLATELET MORPHOLOGY COMMENT NORMAL; RBC MORPHOLOGY COMMENT ABNORMAL
[2020-08-21] MEDS ORDERED: POTASSIUM CHLORIDE 20 MEQ TAB CR PO NR (13:45)
[2020-08-21] MEDS ORDERED: SODIUM CHLORIDE 0.9% 50ML 50 ML ONE (16:19)
[2020-08-21] MEDS ORDERED: CEFEPIME HCL 1 GM VIAL ONE (16:19)
[2020-08-21] MEDS: CEFEPIME HCL 1GM 1 GM in SODIUM CHLORIDE 0.9% 50ML 50 ML IV SCH (18:29)
[2020-08-21] MEDS: ATORVASTATIN 20 MG TAB PO SCH (21:35)
[2020-08-21] MEDS: FLUCONAZOLE 200 MG/100 ML 100 ML IV SCH (21:35)
[2020-08-22] VITALS: BP 129/56
[2020-08-22 04:00] VITALS: BP 114/62
[2020-08-22] MEDS: LEVOTHYROXINE SODIUM 50 MCG TAB PO SCH (05:03)
[2020-08-22] MEDS: NYSTATIN SUSPENSION 5 ML UDC PO SCH ×2 (05:03→14:24)
[2020-08-22] MEDS: INSULIN REGULAR, HUMAN 100 UNIT/1 ML 3ML VIAL SQ SCH ×2 (07:30→11:30)
[2020-08-22 07:38] LABS: BASOPHILS % 0.4 % (0.0-1.0); EOSINOPHILS % 0.9 % (0.0-6.0); HEMATOCRIT 23.8 % (34.2-44.1); HEMOGLOBIN 8.1 g/dL (12.0-16.0); LYMPHOCYTES # (AUTO) 0.3 (1.0-3.2); LYMPHOCYTES % 11.3 % (18.0-39.1); MEAN CORPUSCULAR HEMOGLOBIN 34.3 pg (28-32); MEAN CORPUSCULAR VOLUME 100.8 fL (81-99); MONOCYTES % 1.3 % (4.4-11.3); NEUTROPHILS % 85.2 % (38.7-80.0); PLATELET COUNT 67 x10e3/uL (140-360); RED BLOOD COUNT 2.36 x10e6/uL (3.6-5.1); RED CELL DISTRIBUTION WIDTH 16.8 % (11.7-14.4)
[2020-08-22 07:53] VITALS: BP 124/64
[2020-08-22 07:59] LABS: ANION GAP 9.5 mmol/L (8-16); BLOOD UREA NITROGEN 15 mg/dL (7-26); BUN/CREATININE RATIO 27 (6-25); CARBON DIOXIDE 24 mmol/L (22-29); CHLORIDE 107 mmol/L (98-107); CREATININE, SERUM 0.55 mg/dL (0.57-1.11); EST GLOMERULAR FILTRATION RATE > 60 ML/MIN (60-); GLUCOSE 78 mg/dL (74-118); POTASSIUM 3.5 mmol/L (3.5-5.1); SODIUM 137 mmol/L (136-145)
[2020-08-22 08:01] LABS: CALCIUM 6.9 mg/dL (8.4-10.2)
[2020-08-22] MEDS: LIDOCAINE VISC 2% SOLN 15 ML UDC PO SCH ×2 (08:30→11:51)
[2020-08-22] MEDS ORDERED: KEFLEX125 MG/5 M PO (08:31)
[2020-08-22] MEDS: CIPROFLOXACIN-DEXAMETHASONE (OTIC) 7.5 ML BOTTLE OT SCH (08:40)
[2020-08-22] MEDS ORDERED: DIFLUCAN100 MG PO (08:41)
[2020-08-22] MEDS ORDERED: CIPRODEX OTIC7.5 ML OT (08:41)
[2020-08-22] MEDS: SODIUM CHLORIDE 0.9% 1000ML 1,000 ML IV SCH (08:41)
[2020-08-22] MEDS ORDERED: NYSTATIN100000 UNI PO (08:41)
[2020-08-22 08:44] VITALS: BP 124/64
[2020-08-22] MEDS ORDERED: CALCIUM GLUCONATE 10% INJ 9.3 MEQ in SODIUM CHLORIDE 0.9% 100 ML 100 ML IV ONE (09:00)
[2020-08-22] MEDS ORDERED: ONDANSETRON HCL 4 MG ORAL DISINTEGRATING TAB PO PRN (10:15)
[2020-08-22 11:58] VITALS: BP 138/69
[2020-08-22 16:10] VITALS: BP 137/70
== END 2020-08-22 16:20 | disposition home or self-care (01) | DRG 809 ==
LOC: ER 18:06 → ERHOLD 19:39 → MED/SURG 08-20 00:26
PROVIDERS: ADMIT Internal Medicine; ATTEND Internal Medicine
DX: D70.2 Other drug-induced agranulocytosis (principal); B37.0 Candidal stomatitis; N17.9 Acute kidney failure, unspecified; E11.9 Type 2 diabetes mellitus without complications; M06.9 Rheumatoid arthritis, unspecified; K21.9 Gastro-esophageal reflux disease without esophagitis; T37.8X5A Adverse effect of other specified systemic anti-infectives and antiparasitics, initial encounter; Z79.4 Long term (current) use of insulin; Z20.822 Contact with and (suspected) exposure to COVID-19
CPT/HCPCS: 36415; 71045; 80048; 80053; 80061; 81001; 82150; 82550; 82553; 82948; 83036; 83690; 83735; 84484; 85025; 85045; 87040; 87071; 87205; 93005; 99251; 99284; J0610; J0692; J1442; J1450; J2405; J7030; U0002

== ENCOUNTER 2020-08-24 11:04 | Inpatient (IN) | payer MEDICARE, OTHER ==
[~2020-08-24] VITALS: Ht 154.9 cm; Wt 65.3 kg
[~2020-08-24 11:04] MED LIST changes: +CIPRODEX OTIC7.5 ML OT; +DIFLUCAN100 MG PO; +KEFLEX125 MG/5 M PO; +NYSTATIN100000 UNI PO
[2020-08-24] MEDS ORDERED: ONDANSETRON HCL INJ 2MG/ML 2ML 2 MG/ML VIAL IV STA (11:15)
[2020-08-24] MEDS ORDERED: SODIUM CHLORIDE 0.9% 1000ML 1,000 ML IV STA (11:15)
[2020-08-24 11:59] LABS: EOSINOPHILS % 7.7 % (0.0-6.0); HEMATOCRIT 27.1 % (34.2-44.1); HEMOGLOBIN 9.4 g/dL (12.0-16.0); LYMPHOCYTES # (AUTO) 0.2 (1.0-3.2); LYMPHOCYTES % 57.7 % (18.0-39.1); MEAN CORPUSCULAR HEMOGLOBIN 34.4 pg (28-32); MEAN CORPUSCULAR HGB CONC 34.7 g/dL (31-35); MEAN CORPUSCULAR VOLUME 99.3 fL (81-99); MONOCYTES % 11.5 % (4.4-11.3); NEUTROPHILS # (AUTO) 0.1 (2.1-6.9); NEUTROPHILS % 23.1 % (38.7-80.0); RED BLOOD COUNT 2.73 x10e6/uL (3.6-5.1); RED CELL DISTRIBUTION WIDTH 16.2 % (11.7-14.4)
[2020-08-24 12:05] LABS: PLATELET COUNT 32 x10e3/uL (140-360)
[2020-08-24 12:07] LABS: INR 0.94; PROTHROMBIN TIME 13.2 seconds (11.9-14.5)
[2020-08-24 12:15] LABS: ALANINE AMINOTRANSFERASE 16 IU/L (0-55); ALBUMIN 3.1 g/dL (3.5-5.0); ALBUMIN/GLOBULIN RATIO 0.9 (0.8-2.0); ALKALINE PHOSPHATASE 71 IU/L (40-150); ANION GAP 14.6 mmol/L (8-16); BLOOD UREA NITROGEN 12 mg/dL (7-26); BUN/CREATININE RATIO 19 (6-25); CALCIUM 8.4 mg/dL (8.4-10.2); CARBON DIOXIDE 25 mmol/L (22-29); CHLORIDE 101 mmol/L (98-107); CREATINE KINASE 18 IU/L (29-168); CREATININE, SERUM 0.63 mg/dL (0.57-1.11); EST GLOMERULAR FILTRATION RATE > 60 ML/MIN (60-); GLUCOSE 110 mg/dL (74-118); LIPASE 22 U/L (8-78); POTASSIUM 3.6 mmol/L (3.5-5.1); SODIUM 137 mmol/L (136-145)
[2020-08-24] MEDS ORDERED: SODIUM CHLORIDE 0.9% 50ML 50 ML ONE (12:44)
[2020-08-24] MEDS ORDERED: IOPAMIDOL 370 MG/ML 200 ML INFUS..BTL INJ ONE (12:45)
[2020-08-24 13:04] LABS: HIV 1&2 AB SCREEN NON-REACTIVE (NONREACTIVE)
[2020-08-24] MEDS ORDERED: FILGRASTIM 300 MCG/ML VIAL SC ONE ×2 (15:00→18:00)
[2020-08-24] MEDS: CEFEPIME 2 GM/NS 0.9% 100 ML 100 ML IV SCH (15:03)
[2020-08-24 16:28] LABS: LYMPHOCYTES % (MANUAL) 76 % (19-48); MONOCYTES % (MANUAL) 4 % (3.4-9.0); NEUTROPHILS % (MANUAL) 20 % (40-74)
[2020-08-24 16:30] LABS: PLATELET ESTIMATE MARKEDLY DECREASED
[2020-08-24 16:31] LABS: ANISOCYTOSIS SLIGHT; PLATELET MORPHOLOGY COMMENT NORMAL
[2020-08-24 16:32] LABS: CLARITY,URINE SL CLOUDY (CLEAR); COLOR,URINE YELLOW (YELLOW); KETONES,URINE NEGATIVE (NEGATIVE); LEUKOCYTE ESTERASE ,URINE NEGATIVE (NEGATIVE); NITRITE,URINE NEGATIVE (NEGATIVE); PROTEIN,URINE DIPSTICK NEGATIVE (NEGATIVE); URINE UROBILINOGEN 0.2 mg/dL (0.2 - 1)
[2020-08-24 16:44] LABS: BACTERIA,URINE FEW /HPF
[2020-08-24] MEDS: SODIUM CHLORIDE 0.9% 1000ML 1,000 ML IV SCH ×2 (17:00→20:45)
[2020-08-24 17:19] VITALS: BP 139/95
[2020-08-24 17:25] VITALS: BP 139/95
[2020-08-24 20:00] VITALS: BP 147/75
[2020-08-24] MEDS: ACETAMINOPHEN 325 MG TAB PO PRN (21:28)
[2020-08-25] VITALS (8 sets, daily range): BP systolic 94–123; BP diastolic 62–68
[2020-08-25] MEDS ORDERED: FILGRASTIM 300 MCG/ML VIAL SC ONE (01:00)
[2020-08-25] MEDS: SODIUM CHLORIDE 0.9% 1000ML 1,000 ML IV SCH ×3 (02:26→20:50)
[2020-08-25] MEDS: CEFEPIME 2 GM/NS 0.9% 100 ML 100 ML IV SCH (02:42)
[2020-08-25] MEDS: ONDANSETRON HCL INJ 2MG/ML 2ML 2 MG/ML VIAL IV PRN ×2 (02:59→17:45)
[2020-08-25] MEDS: ACETAMINOPHEN 325 MG TAB PO PRN ×3 (05:17→17:45)
[2020-08-25 06:42] LABS: EOSINOPHILS % 11.1 % (0.0-6.0); LYMPHOCYTES # (AUTO) 0.2 (1.0-3.2); LYMPHOCYTES % 55.6 % (18.0-39.1); MEAN CORPUSCULAR HEMOGLOBIN 34.2 pg (28-32); MEAN CORPUSCULAR HGB CONC 35.2 g/dL (31-35); MEAN CORPUSCULAR VOLUME 97.3 fL (81-99); MONOCYTES % 11.1 % (4.4-11.3); NEUTROPHILS % 11.1 % (38.7-80.0); RED BLOOD COUNT 2.19 x10e6/uL (3.6-5.1); RED CELL DISTRIBUTION WIDTH 16.1 % (11.7-14.4)
[2020-08-25 06:50] LABS: HEMATOCRIT 21.3 % (34.2-44.1)
[2020-08-25 06:53] LABS: HEMOGLOBIN 7.5 g/dL (12.0-16.0)
[2020-08-25 07:01] LABS: ALANINE AMINOTRANSFERASE 12 IU/L (0-55); ALBUMIN 2.2 g/dL (3.5-5.0); ALBUMIN/GLOBULIN RATIO 0.9 (0.8-2.0); ALKALINE PHOSPHATASE 49 IU/L (40-150); BLOOD UREA NITROGEN 6 mg/dL (7-26); BUN/CREATININE RATIO 12 (6-25); CARBON DIOXIDE 23 mmol/L (22-29); CHLORIDE 104 mmol/L (98-107); EST GLOMERULAR FILTRATION RATE > 60 ML/MIN (60-); GLUCOSE 83 mg/dL (74-118); SODIUM 133 mmol/L (136-145)
[2020-08-25 07:11] LABS: PLATELET COUNT 18 x10e3/uL (140-360)
[2020-08-25] MEDS ORDERED: SODIUM CHLORIDE 0.9% 250ML 250 ML IV ONE (08:00)
[2020-08-25] MEDS ORDERED: CEFEPIME HCL 2 GM VIAL IV SCH (08:00)
[2020-08-25] MEDS ORDERED: FILGRASTIM-AAFI 480 MCG/0.8 ML SYRINGE SQ NR (11:00)
[2020-08-25] MEDS ORDERED: FILGRASTIM 300 MCG/ML VIAL SC NR (13:00)
[2020-08-25] MEDS: VANCOMYCIN 1GM/NS 250 ML 250 ML IV SCH (14:30)
[2020-08-25] MEDS: NYSTATIN SUSPENSION 5 ML UDC PO SCH ×2 (14:49→20:50)
[2020-08-25] MEDS ORDERED: CEFEPIME 2 GM/NS 0.9% 100 ML 100 ML IV SCH (15:00)
[2020-08-25 15:49] LABS: EOSINOPHILS # (AUTO) 0.1 (0.0-0.4); EOSINOPHILS % 16.7 % (0.0-6.0); HEMATOCRIT 24.6 % (34.2-44.1); HEMOGLOBIN 8.4 g/dL (12.0-16.0); LYMPHOCYTES # (AUTO) 0.2 (1.0-3.2); MEAN CORPUSCULAR HEMOGLOBIN 31.9 pg (28-32); MEAN CORPUSCULAR HGB CONC 34.1 g/dL (31-35); MEAN CORPUSCULAR VOLUME 93.5 fL (81-99); MONOCYTES % 5.6 % (4.4-11.3); NEUTROPHILS # (AUTO) 0.1 (2.1-6.9); NEUTROPHILS % 27.7 % (38.7-80.0); PLATELET COUNT 79 x10e3/uL (140-360); RED BLOOD COUNT 2.63 x10e6/uL (3.6-5.1); RED CELL DISTRIBUTION WIDTH 18.3 % (11.7-14.4); RETICULOCYTE % 0.8 % (0.8-2.2)
[2020-08-25 16:23] LABS: FERRITIN 757.35 ng/mL (4.63-204.00)
[2020-08-25 16:45] LABS: BAND NEUTROPHILS % (MANUAL) 12 %; EOSINOPHILS % (MANUAL) 10 % (0-7); LYMPHOCYTES % (MANUAL) 49 % (19-48); MONOCYTES % (MANUAL) 9 % (3.4-9.0); NEUTROPHILS % (MANUAL) 20 % (40-74); PLATELET ESTIMATE MARKEDLY DECREASED; PLATELET MORPHOLOGY COMMENT NORMAL
[2020-08-25] MEDS: MEROPENEM 500MG/ NS 50ML 50 ML IV SCH (20:50)
[2020-08-26] VITALS (8 sets, daily range): BP systolic 113–150; BP diastolic 64–95
[2020-08-26] MEDS ORDERED: FILGRASTIM 300 MCG/ML VIAL SC SCH (01:00)
[2020-08-26] MEDS ORDERED: FILGRASTIM-AAFI 480 MCG/0.8 ML SYRINGE SQ ONE (01:30)
[2020-08-26] MEDS: VANCOMYCIN 1GM/NS 250 ML 250 ML IV SCH ×2 (01:42→14:30)
[2020-08-26] MEDS: SODIUM CHLORIDE 0.9% 1000ML 1,000 ML IV SCH ×2 (04:45→13:05)
[2020-08-26] MEDS: MEROPENEM 500MG/ NS 50ML 50 ML IV SCH ×3 (05:01→21:24)
[2020-08-26] MEDS: ONDANSETRON HCL INJ 2MG/ML 2ML 2 MG/ML VIAL IV PRN ×2 (05:07→12:00)
[2020-08-26 05:10] LABS: EOSINOPHILS % 5.6 % (0.0-6.0); HEMATOCRIT 24.7 % (34.2-44.1); HEMOGLOBIN 8.6 g/dL (12.0-16.0); LYMPHOCYTES # (AUTO) 0.2 (1.0-3.2); MEAN CORPUSCULAR HEMOGLOBIN 32.2 pg (28-32); MEAN CORPUSCULAR HGB CONC 34.8 g/dL (31-35); MEAN CORPUSCULAR VOLUME 92.5 fL (81-99); MONOCYTES # (AUTO) 0.1 (0.2-0.8); MONOCYTES % 14.8 % (4.4-11.3); NEUTROPHILS # (AUTO) 0.2 (2.1-6.9); NEUTROPHILS % 42.6 % (38.7-80.0); PLATELET COUNT 56 x10e3/uL (140-360); RED BLOOD COUNT 2.67 x10e6/uL (3.6-5.1); RED CELL DISTRIBUTION WIDTH 18.7 % (11.7-14.4)
[2020-08-26] MEDS: NYSTATIN SUSPENSION 5 ML UDC PO SCH ×3 (08:48→21:24)
[2020-08-26] MEDS ORDERED: POTASSIUM CHLORIDE 20 MEQ TAB CR PO STA (08:51)
[2020-08-26] MEDS: HYDROCORTISONE ACETATE 25 MG/SUPP.RECT SUPP RC SCH ×2 (09:00→16:48)
[2020-08-26] MEDS: FERROUS SULFATE 325 MG TAB PO SCH ×2 (09:30→16:48)
[2020-08-26 10:05] LABS: LYMPHOCYTES % (MANUAL) 52 % (19-48); MONOCYTES % (MANUAL) 12 % (3.4-9.0); NEUTROPHILS % (MANUAL) 32 % (40-74); PROMYELOCYTES % (MANUAL) 4 % (0-0)
[2020-08-26 10:07] LABS: HYPOCHROMASIA SLIG; PLATELET ESTIMATE MARKEDLY DECREASED; PLATELET MORPHOLOGY COMMENT NORMAL; POLYCHROMASIA FEW
[2020-08-26] MEDS ORDERED: FILGRASTIM 300 MCG/ML VIAL SC NR (13:00)
[2020-08-26] MEDS: ACETAMINOPHEN 325 MG TAB PO PRN ×2 (15:00→21:28)
[2020-08-26] MEDS: DEXTROSE 5%/0.45% SOD CHL 1,000 ML IV SCH (18:15)
[2020-08-27] VITALS (7 sets, daily range): BP systolic 94–155; BP diastolic 62–79
[2020-08-27] MEDS ORDERED: FILGRASTIM 300 MCG/ML VIAL SC NR (01:00)
[2020-08-27] MEDS: DEXTROSE 5%/0.45% SOD CHL 1,000 ML IV SCH ×3 (01:27→19:27)
[2020-08-27] MEDS: VANCOMYCIN 1GM/NS 250 ML 250 ML IV SCH ×2 (01:29→15:19)
[2020-08-27 05:35] LABS: BASOPHILS % 1.4 % (0.0-1.0); EOSINOPHILS # (AUTO) 0.1 (0.0-0.4); EOSINOPHILS % 1.8 % (0.0-6.0); HEMATOCRIT 25.6 % (34.2-44.1); HEMOGLOBIN 9.1 g/dL (12.0-16.0); LYMPHOCYTES # (AUTO) 0.5 (1.0-3.2); MEAN CORPUSCULAR HEMOGLOBIN 32.2 pg (28-32); MEAN CORPUSCULAR HGB CONC 35.5 g/dL (31-35); MEAN CORPUSCULAR VOLUME 90.5 fL (81-99); MONOCYTES # (AUTO) 0.4 (0.2-0.8); MONOCYTES % 15.7 % (4.4-11.3); NEUTROPHILS # (AUTO) 1.1 (2.1-6.9); NEUTROPHILS % 37.3 % (38.7-80.0); RED BLOOD COUNT 2.83 x10e6/uL (3.6-5.1); RED CELL DISTRIBUTION WIDTH 18.4 % (11.7-14.4)
[2020-08-27 05:54] LABS: PLATELET COUNT 39 x10e3/uL (140-360)
[2020-08-27] MEDS: MEROPENEM 500MG/ NS 50ML 50 ML IV SCH ×3 (05:57→21:57)
[2020-08-27 07:01] LABS: BAND NEUTROPHILS % (MANUAL) 11 %; EOSINOPHILS % (MANUAL) 1 % (0-7); LYMPHOCYTES % (MANUAL) 28 % (19-48); MONOCYTES % (MANUAL) 8 % (3.4-9.0); MYELOCYTES % (MANUAL) 5 % (0-0); NEUTROPHILS % (MANUAL) 47 % (40-74); NUCLEATED RED BLOOD CELLS 2
[2020-08-27 07:02] LABS: ANISOCYTOSIS MODERATE; PLATELET ESTIMATE MARKEDLY DECREASED; RBC MORPHOLOGY COMMENT ABNORMAL
[2020-08-27 07:03] LABS: OVALOCYTES FEW; POLYCHROMASIA FEW
[2020-08-27 07:04] LABS: PLATELET MORPHOLOGY COMMENT NORMAL; SCHISTOCYTES RARE
[2020-08-27] MEDS: HYDROCORTISONE ACETATE 25 MG/SUPP.RECT SUPP RC SCH ×2 (09:07→16:47)
[2020-08-27] MEDS: NYSTATIN SUSPENSION 5 ML UDC PO SCH ×3 (09:10→21:56)
[2020-08-27] MEDS: FERROUS SULFATE 325 MG TAB PO SCH ×2 (09:10→16:51)
[2020-08-27] MEDS ORDERED: FILGRASTIM 300 MCG/ML VIAL SC ONE (13:00)
[2020-08-27] MEDS: MORPHINE SULFATE INJ 2 MG/ML SYR IV PRN (14:30)
[2020-08-27] MEDS: ONDANSETRON HCL INJ 2MG/ML 2ML 2 MG/ML VIAL IV PRN (15:45)
[2020-08-28] VITALS (10 sets, daily range): BP systolic 99–130; BP diastolic 55–72
[2020-08-28] MEDS: ONDANSETRON HCL INJ 2MG/ML 2ML 2 MG/ML VIAL IV PRN ×2 (00:04→08:51)
[2020-08-28] MEDS: ACETAMINOPHEN 325 MG TAB PO PRN (00:21)
[2020-08-28] MEDS: DEXTROSE 5%/0.45% SOD CHL 1,000 ML IV SCH ×3 (02:19→18:25)
[2020-08-28] MEDS: VANCOMYCIN 1GM/NS 250 ML 250 ML IV SCH ×2 (02:20→18:18)
[2020-08-28] MEDS: MEROPENEM 500MG/ NS 50ML 50 ML IV SCH ×3 (05:14→21:55)
[2020-08-28 07:05] LABS: BASOPHILS # (AUTO) 0.1 (0.0-0.1); BASOPHILS % 0.7 % (0.0-1.0); EOSINOPHILS # (AUTO) 0.1 (0.0-0.4); EOSINOPHILS % 0.5 % (0.0-6.0); HEMOGLOBIN 8.3 g/dL (12.0-16.0); LYMPHOCYTES # (AUTO) 0.7 (1.0-3.2); LYMPHOCYTES % 5.4 % (18.0-39.1); MEAN CORPUSCULAR HEMOGLOBIN 32.2 pg (28-32); MEAN CORPUSCULAR HGB CONC 36.4 g/dL (31-35); MEAN CORPUSCULAR VOLUME 88.4 fL (81-99); MONOCYTES # (AUTO) 1.4 (0.2-0.8); MONOCYTES % 10.8 % (4.4-11.3); NEUTROPHILS # (AUTO) 8.9 (2.1-6.9); NEUTROPHILS % 66.7 % (38.7-80.0); RED BLOOD COUNT 2.58 x10e6/uL (3.6-5.1); RED CELL DISTRIBUTION WIDTH 18.5 % (11.7-14.4)
[2020-08-28 07:15] LABS: HEMATOCRIT 22.8 % (34.2-44.1); PLATELET COUNT 36 x10e3/uL (140-360)
[2020-08-28 07:20] LABS: ANION GAP 9.3 mmol/L (8-16); BLOOD UREA NITROGEN 6 mg/dL (7-26); BUN/CREATININE RATIO 10 (6-25); CARBON DIOXIDE 24 mmol/L (22-29); CHLORIDE 102 mmol/L (98-107); EST GLOMERULAR FILTRATION RATE > 60 ML/MIN (60-); GLUCOSE 111 mg/dL (74-118); SODIUM 133 mmol/L (136-145)
[2020-08-28 07:27] LABS: CALCIUM 6.2 mg/dL (8.4-10.2); POTASSIUM 2.3 mmol/L (3.5-5.1)
[2020-08-28] MEDS ORDERED: POTASSIUM CHLORIDE 20MEQ/100ML 300 ML IV ONE (07:45)
[2020-08-28] MEDS: FERROUS SULFATE 325 MG TAB PO SCH ×2 (08:00→16:00)
[2020-08-28] MEDS: NYSTATIN SUSPENSION 5 ML UDC PO SCH ×3 (08:42→20:32)
[2020-08-28] MEDS: HYDROCORTISONE ACETATE 25 MG/SUPP.RECT SUPP RC SCH ×2 (08:43→16:00)
[2020-08-28 09:18] LABS: BAND NEUTROPHILS % (MANUAL) 3 %; EOSINOPHILS % (MANUAL) 2 % (0-7); LYMPHOCYTES % (MANUAL) 16 % (19-48); MONOCYTES % (MANUAL) 5 % (3.4-9.0); NEUTROPHILS % (MANUAL) 71 % (40-74); NUCLEATED RED BLOOD CELLS 3
[2020-08-28 09:19] LABS: SMUDGE CELLS FEW
[2020-08-28 09:49] LABS: ANISOCYTOSIS MODERATE; BURR CELLS SLIGHT; PLATELET MORPHOLOGY COMMENT FEW LARGE; POLYCHROMASIA FEW; RBC MORPHOLOGY COMMENT ABNORMAL; SCHISTOCYTES FEW
[2020-08-28 09:52] LABS: PLATELET ESTIMATE MARKEDLY DECREASED; TOXIC GRANULATION MODERATE
[2020-08-28 09:53] LABS: MICROCYTOSIS SLIGHT
[2020-08-28] MEDS ORDERED: MIDAZOLAM HCL 2 MG/2 ML VIAL ONE (11:25)
[2020-08-28] MEDS ORDERED: FENTANYL CITRATE/PF 100MCG/2 ML INJ ONE (11:25)
[2020-08-28] MEDS ORDERED: POTASSIUM CHLORIDE 20 MEQ TAB CR PO ONE (12:00)
[2020-08-28] MEDS ORDERED: POTASSIUM CHLORIDE 20 MEQ TAB CR PO NR ×2 (16:15→18:00)
[2020-08-28] MEDS ORDERED: POTASSIUM CHLORIDE 20MEQ/100ML 200 ML IV ONE (19:30)
[2020-08-28] MEDS: MORPHINE SULFATE INJ 2 MG/ML SYR IV PRN (22:18)
[2020-08-29] VITALS (8 sets, daily range): BP systolic 107–144; BP diastolic 62–74
[2020-08-29] MEDS: VANCOMYCIN 1GM/NS 250 ML 250 ML IV SCH (02:30)
[2020-08-29] MEDS: DEXTROSE 5%/0.45% SOD CHL 1,000 ML IV SCH ×3 (02:50→17:44)
[2020-08-29 05:09] LABS: HEMATOCRIT 22.3 % (34.2-44.1); MEAN CORPUSCULAR HEMOGLOBIN 31.5 pg (28-32); MEAN CORPUSCULAR HGB CONC 35.9 g/dL (31-35); MEAN CORPUSCULAR VOLUME 87.8 fL (81-99); RED BLOOD COUNT 2.54 x10e6/uL (3.6-5.1); RED CELL DISTRIBUTION WIDTH 18.2 % (11.7-14.4)
[2020-08-29 05:10] LABS: PLATELET COUNT 33 x10e3/uL (140-360)
[2020-08-29] MEDS: MEROPENEM 500MG/ NS 50ML 50 ML IV SCH ×3 (05:25→20:42)
[2020-08-29 07:26] LABS: ANION GAP 7.3 mmol/L (8-16); BLOOD UREA NITROGEN 6 mg/dL (7-26); BUN/CREATININE RATIO 10 (6-25); CARBON DIOXIDE 24 mmol/L (22-29); CHLORIDE 104 mmol/L (98-107); EST GLOMERULAR FILTRATION RATE > 60 ML/MIN (60-); GLUCOSE 121 mg/dL (74-118); POTASSIUM 3.3 mmol/L (3.5-5.1); SODIUM 132 mmol/L (136-145)
[2020-08-29 07:35] LABS: CALCIUM 6.5 mg/dL (8.4-10.2)
[2020-08-29] MEDS: FERROUS SULFATE 325 MG TAB PO SCH ×2 (08:00→17:00)
[2020-08-29 08:03] LABS: MAGNESIUM 1.1 MG/DL (1.3-2.1)
[2020-08-29 08:38] LABS: PHOSPHORUS 0.7 MG/DL (2.3-4.7)
[2020-08-29] MEDS: HYDROCORTISONE ACETATE 25 MG/SUPP.RECT SUPP RC SCH ×2 (09:00→17:00)
[2020-08-29] MEDS: NYSTATIN SUSPENSION 5 ML UDC PO SCH ×3 (09:00→20:42)
[2020-08-29 09:13] LABS: BAND NEUTROPHILS % (MANUAL) 1 %; LYMPHOCYTES % (MANUAL) 10 % (19-48); MONOCYTES % (MANUAL) 9 % (3.4-9.0); MYELOCYTES % (MANUAL) 10 % (0-0); NEUTROPHILS % (MANUAL) 69 % (40-74); NUCLEATED RED BLOOD CELLS 2
[2020-08-29 09:14] LABS: ANISOCYTOSIS MODERATE; BURR CELLS SLIGHT; OVALOCYTES MODERATE; SCHISTOCYTES FEW
[2020-08-29 09:15] LABS: PLATELET MORPHOLOGY COMMENT NORMAL; RBC MORPHOLOGY COMMENT ABNORMAL
[2020-08-29] MEDS: ACETAMINOPHEN 325 MG TAB PO PRN (09:21)
[2020-08-29] MEDS ORDERED: MAGNESIUM SULFATE 2GM/50ML 50 ML IV ONE (09:30)
[2020-08-29] MEDS ORDERED: CALCIUM GLUCONATE 10% INJ 9.3 MEQ in SODIUM CHLORIDE 0.9% 100 ML 100 ML IV ONE (09:45)
[2020-08-29] MEDS ORDERED: POTASSIUM PHOSPHATE 20 MM in SODIUM CHLORIDE 0.9% 250ML 250 ML IV ONE (10:00)
[2020-08-29 13:30] LABS: PLATELET ESTIMATE MARKEDLY DECREASED
[2020-08-30] VITALS: BP 98/70
[2020-08-30] MEDS: DEXTROSE 5%/0.45% SOD CHL 1,000 ML IV SCH ×3 (02:10→17:16)
[2020-08-30] MEDS ORDERED: VANCOMYCIN 1GM/NS 250 ML 250 ML IV SCH (02:30)
[2020-08-30 04:00] VITALS: BP 110/79
[2020-08-30] MEDS: MEROPENEM 500MG/ NS 50ML 50 ML IV SCH ×2 (05:00→14:00)
[2020-08-30] MEDS: HYDROCORTISONE ACETATE 25 MG/SUPP.RECT SUPP RC SCH ×2 (05:00→17:00)
[2020-08-30] MEDS: FERROUS SULFATE 325 MG TAB PO SCH ×2 (08:00→17:00)
[2020-08-30 08:29] VITALS: BP 159/74
[2020-08-30 08:45] VITALS: BP 159/74
[2020-08-30] MEDS: NYSTATIN SUSPENSION 5 ML UDC PO SCH ×2 (09:00→15:00)
[2020-08-30 12:03] VITALS: BP 153/83
[2020-08-30 12:03] LABS: EOSINOPHILS # (AUTO) 0.1 (0.0-0.4); EOSINOPHILS % 0.3 % (0.0-6.0); HEMATOCRIT 25.6 % (34.2-44.1); HEMOGLOBIN 9.2 g/dL (12.0-16.0); LYMPHOCYTES # (AUTO) 1.6 (1.0-3.2); LYMPHOCYTES % 7.7 % (18.0-39.1); MEAN CORPUSCULAR HEMOGLOBIN 31.8 pg (28-32); MEAN CORPUSCULAR HGB CONC 35.9 g/dL (31-35); MEAN CORPUSCULAR VOLUME 88.6 fL (81-99); MONOCYTES # (AUTO) 2.6 (0.2-0.8); MONOCYTES % 12.6 % (4.4-11.3); NEUTROPHILS # (AUTO) 11.6 (2.1-6.9); NEUTROPHILS % 57.4 % (38.7-80.0); RED BLOOD COUNT 2.89 x10e6/uL (3.6-5.1); RED CELL DISTRIBUTION WIDTH 18.7 % (11.7-14.4)
[2020-08-30 12:05] LABS: PLATELET COUNT 47 x10e3/uL (140-360)
[2020-08-30 12:22] LABS: ANION GAP 8.3 mmol/L (8-16); BLOOD UREA NITROGEN 6 mg/dL (7-26); BUN/CREATININE RATIO 10 (6-25); CALCIUM 7.1 mg/dL (8.4-10.2); CARBON DIOXIDE 26 mmol/L (22-29); CHLORIDE 104 mmol/L (98-107); CREATININE, SERUM 0.63 mg/dL (0.57-1.11); EST GLOMERULAR FILTRATION RATE > 60 ML/MIN (60-); GLUCOSE 130 mg/dL (74-118); MAGNESIUM 1.7 MG/DL (1.3-2.1); PHOSPHORUS 1.8 MG/DL (2.3-4.7); POTASSIUM 3.3 mmol/L (3.5-5.1); SODIUM 135 mmol/L (136-145)
[2020-08-30] MEDS ORDERED: POTASSIUM PHOSPHATE 20 MM in SODIUM CHLORIDE 0.9% 250ML 250 ML IV ONE (15:00)
[2020-08-30 15:44] LABS: BAND NEUTROPHILS % (MANUAL) 2 %; LYMPHOCYTES % (MANUAL) 5 % (19-48); METAMYELOCYTES % (MANUAL) 5 % (0-0); MONOCYTES % (MANUAL) 6 % (3.4-9.0); MYELOCYTES % (MANUAL) 6 % (0-0); NEUTROPHILS % (MANUAL) 64 % (40-74); PROMYELOCYTES % (MANUAL) 12 % (0-0)
[2020-08-30 15:45] LABS: PLATELET ESTIMATE MARKEDLY DECREASED
[2020-08-30 15:46] LABS: MICROCYTOSIS SLIGHT; PLATELET MORPHOLOGY COMMENT FEW LARGE; POIKILOCYTOSIS SLIGHT
[2020-08-30 15:47] LABS: ANISOCYTOSIS SLIG; SCHISTOCYTES FEW
[2020-08-30 17:12] VITALS: BP 176/87
[2020-08-30] MEDS ORDERED: DOXYCYCLINE HY100 MG PO (18:49)
== END 2020-08-30 20:02 | disposition home or self-care (01) | DRG 809 ==
LOC: ER 11:20 → ERHOLD 13:14 → MED/SURG2 16:30
PROVIDERS: ADMIT Internal Medicine; ATTEND Internal Medicine
PROC: 07DR3ZX Extraction of Iliac Bone Marrow, Percutaneous Approach, Diagnostic (ICD-10-PCS; principal; 2020-08-24)
DX: D70.9 Neutropenia, unspecified (principal); B37.0 Candidal stomatitis; D84.821 Immunodeficiency due to drugs; D69.6 Thrombocytopenia, unspecified; D61.818 Other pancytopenia; E11.9 Type 2 diabetes mellitus without complications; E87.6 Hypokalemia; K57.90 Diverticulosis of intestine, part unspecified, without perforation or abscess without bleeding; M06.9 Rheumatoid arthritis, unspecified; T37.8X5A Adverse effect of other specified systemic anti-infectives and antiparasitics, initial encounter; T45.1X5A Adverse effect of antineoplastic and immunosuppressive drugs, initial encounter; K21.9 Gastro-esophageal reflux disease without esophagitis; Z20.822 Contact with and (suspected) exposure to COVID-19
CPT/HCPCS: 36415; 38222; 71045; 74177; 74470; 77012; 80048; 80053; 80202; 81001; 82270; 82550; 82553; 82607; 82728; 82746; 82948; 83010; 83540; 83615; 83690; 83735; 83880; 84100; 84132; 84466; 84484; 85007; 85025; 85027; 85045; 85610; 86850; 86900; 86920; 87040; 87390; 88305; 93005; 97139; 99284; G0433; G0435; J0610; J1442; J2250; J2270; J2405; J3010; J3370; J3475; J3480; J7030; J7050; P9016; P9034; Q9967; U0002

== ENCOUNTER 2020-09-14 17:52 | Emergency (ER) | payer MEDICARE, OTHER ==
[~2020-09-14] VITALS: Ht 154.9 cm; Wt 63.5 kg
[~2020-09-14 17:52] MED LIST changes: +DOXYCYCLINE HY100 MG PO
[2020-09-14] MEDS ORDERED: TYLENOL # 31 EA PO (21:13)
== END 2020-09-14 21:25 | disposition home or self-care (01) ==
LOC: ER 17:57
DX: M79.631 Pain in right forearm (principal); I10 Essential (primary) hypertension; E11.9 Type 2 diabetes mellitus without complications; E78.5 Hyperlipidemia, unspecified; M06.9 Rheumatoid arthritis, unspecified
CPT/HCPCS: 93971; 99283

== ENCOUNTER 2020-11-17 09:19 | Emergency (ER) | payer MEDICARE, OTHER ==
[~2020-11-17] VITALS: Ht 154.9 cm; Wt 63.5 kg
[~2020-11-17 09:19] MED LIST changes: +TYLENOL # 31 EA PO
[2020-11-17 10:31] LABS: BASOPHILS % 0.6 % (0.0-1.0); EOSINOPHILS # (AUTO) 0.2 (0.0-0.4); EOSINOPHILS % 3.4 % (0.0-6.0); HEMATOCRIT 34.1 % (34.2-44.1); HEMOGLOBIN 11.4 g/dL (12.0-16.0); LYMPHOCYTES # (AUTO) 1.1 (1.0-3.2); LYMPHOCYTES % 21.2 % (18.0-39.1); MEAN CORPUSCULAR HEMOGLOBIN 31.7 pg (28-32); MEAN CORPUSCULAR HGB CONC 33.4 g/dL (31-35); MEAN CORPUSCULAR VOLUME 94.7 fL (81-99); MONOCYTES # (AUTO) 0.4 (0.2-0.8); MONOCYTES % 8.9 % (4.4-11.3); NEUTROPHILS # (AUTO) 3.3 (2.1-6.9); NEUTROPHILS % 65.7 % (38.7-80.0); PLATELET COUNT 215 x10e3/uL (140-360); RED CELL DISTRIBUTION WIDTH 12.9 % (11.7-14.4)
[2020-11-17 10:42] LABS: ANION GAP 8.9 mmol/L (8-16); CALCIUM 8.8 mg/dL (8.4-10.2); CREATININE, SERUM 0.71 mg/dL (0.57-1.11); MAGNESIUM 1.8 MG/DL (1.3-2.1)
[2020-11-17 10:43] LABS: POTASSIUM 2.9 mmol/L (3.5-5.1)
[2020-11-17] MEDS ORDERED: POTASSIUM CHLORIDE 20 MEQ TAB CR PO NR (11:00)
== END 2020-11-17 11:59 | disposition home or self-care (01) ==
LOC: ER 09:30
DX: E87.6 Hypokalemia (principal); I10 Essential (primary) hypertension; E11.65 Type 2 diabetes mellitus with hyperglycemia; E78.5 Hyperlipidemia, unspecified; M06.9 Rheumatoid arthritis, unspecified
CPT/HCPCS: 36415; 80048; 83735; 85025; 93005; 99284